=== PATIENT | male | born 1950 | race Caucasian/White ===

== ENCOUNTER 2016-08-25 21:24 | Inpatient (IN) | payer MEDICARE ==
[~2016-08-25] VITALS: Ht 182.9 cm; Wt 77.0 kg
[~2016-08-25 21:24] MED LIST: ALL220TA PO; AMAN100T PO; CARB25TA PO; ENAL10TA7 PO; ESCI10TA PO; FURO1TAB93 PO; OCUVTAB4 PO; OMEP20TA PO; [UNRECOGNIZED DRUG - CODE] PO
[2016-08-25 21:28] VITALS: BP 144/87; PULSE 67; RESP 16; TEMP 97.7; O2SAT 100
[2016-08-26 00:42] LABS: AUTOMATED NEUTROPHIL # 5.7 TH/MM3 (1.8-7.7); BASOPHIL % 0.5 % (0.0-2.0); EOSINOPHIL % 0.3 % (0.0-4.0); HEMATOCRIT 44.6 % (39.0-51.0); HEMO FLAGS DIFF FINAL; LYMPH % 6.8 % (9.0-44.0); LYMPHOCYTE # 0.4 TH/MM3 (1.0-4.8); MEAN CELL VOLUME 92.4 FL (80.0-100.0); MEAN CORPUSCULAR HEMOGLOBIN 31.2 PG (27.0-34.0); MEAN CORPUSCULAR HGB CONC 33.7 % (32.0-36.0); MONO % 4.9 % (0.0-8.0); NEUT % 87.5 % (16.0-70.0); PLATELET COUNT 235 TH/MM3 (150-450); RED BLOOD COUNT 4.82 MIL/MM3 (4.50-5.90); RED CELL DISTRIBUTION WIDTH 13.6 % (11.6-17.2); WHITE BLOOD COUNT 6.5 TH/MM3 (4.0-11.0)
[2016-08-26 00:52] LABS: ALT (GPT) 10 U/L (12-78); ANION GAP 8 MEQ/L (5-15); AST (GOT) 18 U/L (15-37); BICARBONATE 32.4 MEQ/L (21.0-32.0); BLOOD UREA NITROGEN 24 MG/DL (7-18); CHLORIDE 98 MEQ/L (98-107); GLOMERULAR FILTRATION RATE 73 ML/MIN (>89); POTASSIUM 3.4 MEQ/L (3.5-5.1); SODIUM (NA) 138 MEQ/L (136-145)
[2016-08-26 00:54] LABS: ALKALINE PHOSPHATASE 98 U/L (45-117); TOTAL BILIRUBIN ADULT 0.7 MG/DL (0.2-1.0)
[2016-08-26 01:11] LABS: BLOOD, URINE NEG (NEG); COMMENT (UR) CULT NOT INDICATED; CULTURE IF INDICATED CULT NOT INDICATED; GLUCOSE,URINE NEG (NEG); HYALINE CAST, URINE 1 /lpf (RARE); KETONE, URINE 80 mg/dL (NEG); MUCUS URINE FEW /lpf (OCC); NITRITE,URINE NEG (NEG); PH, URINE 5.5 (5.0-8.5); URINE COLOR YELLOW (YELLW/STRAW)
[2016-08-26 01:50] VITALS: BP 139/66; PULSE 79; RESP 18; O2SAT 94
[2016-08-26] MEDS ORDERED: ENAL10TA PO (02:09)
[2016-08-26] MEDS ORDERED: NAPR220T95 PO (02:09)
[2016-08-26] MEDS ORDERED: OMEP20TA PO (02:09)
[2016-08-26] MEDS ORDERED: AMAN100C18 PO (02:09)
[2016-08-26] MEDS ORDERED: ESCI10TA PO (02:09)
[2016-08-26] MEDS ORDERED: FURO40TA PO (02:09)
[2016-08-26] MEDS ORDERED: [UNRECOGNIZED DRUG - CODE] PO (02:09)
[2016-08-26] MEDS ORDERED: SINE10100 PO (02:09)
--- NOTE | 2016-08-26 02:25 | PD ---
HPI . Abdominal pain Chief Complaint: Abdominal Pain Time Seen by Provider: 01:43 Travel History International Travel<30 days: No Contact w/Intl Traveler<30days: No Traveled to known affect area: No History of Present Illness HPI Patient presents with abdominal pain. He states that it started this morning but then got better. It recurred at about 4 PM and has continued. He decided to come to the emergency department about 7 PM. Unfortunately, he had to sit out in triage for a while before he got room. His pain has now resolved. He and his both state that he will periodically get a knot in his belly button which is hard and tender. He had this earlier today. The knot has resolved as has the pain. He did not have any associated nausea or vomiting. The patient and both state that he can usually lay down flat on his back and massage the knot in his umbilicus and the pain and the knot will resolve. PFSH Past Medical History Cancer: No Cardiovascular Problems: Yes (HTN) Diabetes: No Patient Takes Glucophage: No Endocrine: No Gastrointestinal Disorders: Yes (GERD, (CURRENT GB PROB), CONSTIPATION) GERD: Yes Genitourinary: No Hepatitis: No Hiatal Hernia: No Hypertension: Yes Immune Disorder: Yes (PARKINSON'S DIS.) Inguinal Hernia: Yes Musculoskeletal: Yes (ARTHRITIS) Neurologic: Yes (PARKINSON'S/ DYSPHASIA) Parkinson's Disease: Yes Psychiatric: No Reproductive: No Respiratory: No Thyroid Disease: No Tetanus Vaccination: < 5 Years Past Surgical History Abdominal Surgery: No AICD: No Cardiac Surgery: No Cholecystectomy: Yes (06/2015) Ear Surgery: No Endocrine Surgery: No Eye Surgery: No Genitourinary Surgery: Yes (TURP) Joint Replacement: Yes (CHASITY.KNEES) Neurologic Surgery: No Oral Surgery: No Pacemaker: No Thoracic Surgery: No Other Surgery: Yes (HERNIA REPAIR) Social History Alcohol Use: Yes (RARELY) Tobacco Use: No Substance Use: No Allergies-Medications (Allergen,Severity, Reaction): Coded Allergies: Phenergan (Unverified Adverse Reaction, Unknown, avoid r/t parkinson's, ) IINSTRUCTED BY PCP TO AVOID DUE TO PARKINSON'S DIS. Reported Meds & Prescriptions Reported Meds & Active Scripts Active Reported Furosemide 40 Mg Tab 40 Mg PO DAILY Escitalopram (Escitalopram Oxalate) 10 Mg Tab 10 Mg PO DAILY Sinemet (Carbidopa/Levodopa) 10-100 Mg Tab 1 Tab PO Q8HR Mirapex ER 24 HR (Pramipexole Dihydrochloride) 4.5 Mg Tab 4.5 Mg PO DAILY Amantadine (Amantadine HCl) 100 Mg Cap 100 Mg PO TID Aleve (Naproxen Sodium) 220 Mg Tab 100 Mg PO BID PRN Omeprazole 20 Mg Tab 20 Mg PO DAILY Enalapril (Enalapril Maleate) 10 Mg Tab 10 Mg PO DAILY Review of Systems Except as stated in HPI: all other systems reviewed are Neg General / Constitutional: No: Fever, Chills Gastrointestinal: Positive: Abdominal Pain, No: Nausea, Vomiting, Changes in Bowel Habits Genitourinary: No: Urgency, Frequency, Dysuria Physical Exam Narrative GENERAL: He is awake and alert and does not appear to be in any acute distress. SKIN: Warm and dry. HEAD: Atraumatic. Normocephalic. EYES: Pupils equal and round. ENT: No nasal bleeding or discharge. Mucous membranes pink and moist. NECK: Trachea midline. CARDIOVASCULAR: Regular rate and rhythm. RESPIRATORY: No accessory muscle use. GASTROINTESTINAL: Abdomen soft, non-tender, nondistended. No palpable umbilical hernia at this time. MUSCULOSKELETAL: No obvious deformities. No edema. NEUROLOGICAL: Awake and alert. No obvious cranial nerve deficits. Motor grossly within normal limits. Normal speech. PSYCHIATRIC: Appropriate mood and affect; insight and judgment normal. Data Data Last Documented VS Vital Signs Date Time Temp Pulse Resp B/P Pulse Ox O2 Delivery O2 Flow Rate FiO2 08/26/16 01:50 79 18 139/66 94 Room Air 08/25/16 21:28 97.7 Orders Complete Blood Count With Diff (08/26/16 00:14) Comprehensive Metabolic Panel (08/26/16 00:14) Urinalysis - C+S If Indicated (08/26/16 00:14) Iv Access Insert/Monitor (08/26/16 00:14) Lipase (08/26/16 00:14) Ct Abd/Pel W/O Iv Contrast (08/26/16 02:21) Sodium Chlor 0.9% 1000 Ml Inj (Ns 1000 M (08/26/16 02:30) Admit Order (Ed Use Only) (08/26/16 03:49) Labs Laboratory Tests Test 08/26/16 08/26/16 00:22 00:32 White Blood Count 6.5 TH/MM3 Red Blood Count 4.82 MIL/MM3 Hemoglobin 15.0 GM/DL Hematocrit 44.6 % Mean Corpuscular Volume 92.4 FL Mean Corpuscular Hemoglobin 31.2 PG Mean Corpuscular Hemoglobin 33.7 % Concent Red Cell Distribution Width 13.6 % Platelet Count 235 TH/MM3 Mean Platelet Volume 8.0 FL Neutrophils (%) (Auto) 87.5 % Lymphocytes (%) (Auto) 6.8 % Monocytes (%) (Auto) 4.9 % Eosinophils (%) (Auto) 0.3 % Basophils (%) (Auto) 0.5 % Neutrophils # (Auto) 5.7 TH/MM3 Lymphocytes # (Auto) 0.4 TH/MM3 Monocytes # (Auto) 0.3 TH/MM3 Eosinophils # (Auto) 0.0 TH/MM3 Basophils # (Auto) 0.0 TH/MM3 CBC Comment DIFF FINAL Differential Comment Sodium Level 138 MEQ/L Potassium Level 3.4 MEQ/L Chloride Level 98 MEQ/L Carbon Dioxide Level 32.4 MEQ/L Anion Gap 8 MEQ/L Blood Urea Nitrogen 24 MG/DL Creatinine 1.02 MG/DL Estimat Glomerular Filtration 73 ML/MIN Rate Random Glucose 135 MG/DL Calcium Level 10.0 MG/DL Total Bilirubin 0.7 MG/DL Aspartate Amino Transf 18 U/L (AST/SGOT) Alanine Aminotransferase 10 U/L (ALT/SGPT) Alkaline Phosphatase 98 U/L Total Protein 7.6 GM/DL Albumin 4.7 GM/DL Lipase 88 U/L Urine Color YELLOW Urine Turbidity CLEAR Urine pH 5.5 Urine Specific [place] 1.027 Urine Protein 30 mg/dL Urine Glucose (UA) NEG mg/dL Urine Ketones 80 mg/dL Urine Occult Blood NEG Urine Nitrite NEG Urine Bilirubin NEG Urine Urobilinogen 2.0 MG/DL Urine Leukocyte Esterase NEG Urine RBC 1 /hpf Urine WBC 1 /hpf Urine Hyaline Casts 1 /lpf Urine Mucus FEW /lpf Microscopic Urinalysis Comment CULT NOT INDICATED MDM Medical Decision Making Medical Screen Exam Complete: Yes Emergency Medical Condition: Yes Medical Record Reviewed: Yes (patient had a volvulus about a year ago which had a similar presentation.) Differential Diagnosis Differential diagnosis of abdominal pain includes but is not limited to gastritis, pancreatitis, hepatitis, gastroenteritis, gallbladder disease, constipation, urinary retention, UTI, peptic ulcer disease, diverticulitis or appendicitis Narrative Course Patient presents for the evaluation of abdominal pain and a swelling in his umbilicus. Both have resolved. CBC & BMP Diagram 08/26/16 00:22 UA is negative. Last Impressions Abdomen/Pelvis CT 08/26/16 022 Signed Impressions: Service Date/Time: Friday, August 26, 2016 02:41 - CONCLUSION: 1. Dilated loop of small bowel with associated mesenteric whorling reflect a partial closed-loop obstruction. Followup examination is recommended if clinically indicated. Porter Burt MD Diagnosis Primary Impression: Partial small bowel obstruction Admitting Information Admitting Physician Requests: Admit Condition: Stable Diana Angulo MD Aug 26, 2016 02:25
[2016-08-26] MEDS ORDERED: SODIUM CHLOR 0.9% 1000 ML INJ 1,000 ML IV ONE (02:30)
--- NOTE | 2016-08-26 03:27 | RADRPT ---
EXAM DATE/TIME: 08/26/2016 02:41 [facility] COMPARISON: CT ABDOMEN & PELVIS W/O CONTRAST, November 27, 2015, 14:27. INDICATIONS : Umbilical pain ORAL CONTRAST: No oral contrast ingested. RADIATION DOSE: 8.9 CTDIvol (mGy) MEDICAL HISTORY : Hypertension. Parkinsons. Gastroesophageal reflux disease. SURGICAL HISTORY : Cholecystectomy. Inguinal hernia repair.TURP. ENCOUNTER: Initial ACUITY: 1 day PAIN SCALE: 8/10 LOCATION: Umbilical TECHNIQUE: Volumetric scanning of the abdomen and pelvis was performed. Using automated exposure control and ad justment of the mA and/or kV according to patient size, radiation dose was kept as low as reasonably achievable to obtain optimal diagnostic quality images. FINDINGS: Calcified granuloma is present in the left lung. The liver and spleen are normal in size and no focal defects are identified. The gallbladder is absent. The pancreas demonstrates normal contour without evidence of mass or ductal dilatation. The adrenal glands and kidneys appear normal bilaterally. No h ydronephrosis or mass lesions are identified. There is a single simple cyst in the right kidney measu ring 10 mm in the upper pole. The mesentery the right lower quadrant is whorled with adjacent dilated loop of small bowel which may reflect a partial obstruction. This is confined to a short segment of small bowel. Examination of the pelvis demonstrates no evidence of free fluid or pelvic mass. No abnormally enlarg ed inguinal or retroperitoneal lymph nodes are present. The bladder is unremarkable. There is diverti culosis without evidence of diverticulitis. CONCLUSION: 1. Dilated loop of small bowel with associated mesenteric whorling reflect a partial closed-loop obst ruction. Followup examination is recommended if clinically indicated. Porter Burt MD on August 26, 2016 at 3:15 Board Certified Radiologist. This report was verified electronically.
[2016-08-26] MEDS ORDERED: BISACODYL 10 MG SUPP PR PRN (04:00)
[2016-08-26] MEDS ORDERED: ONDANSETRON HCL 4 MG/2 ML VIAL IVP PRN (04:00)
[2016-08-26] MEDS ORDERED: ACETAMINOPHEN 1000 MG/100 ML VIAL IV PRN (04:00)
[2016-08-26] MEDS ORDERED: MORPHINE SULFATE 4 MG/ML INJ IV PRN ×2 (04:00)
[2016-08-26] MEDS ORDERED: SODIUM CHLORIDE 0.9% FLUSH 5 ML FLUSH FLUSH PRN (04:00)
[2016-08-26 04:05] VITALS: BP 146/67; PULSE 72; RESP 18; O2SAT 98
[2016-08-26] MEDS: POTASSIUM CHLOR 20 MEQ PREMIX 100 ML IV SCH ×2 (04:24→06:56)
[2016-08-26] MEDS: SODIUM CHLOR 0.9% 1000 ML INJ 1,000 ML IV SCH ×3 (04:26→17:33)
[2016-08-26] MEDS: PANTOPRAZOLE SODIUM 40 MG VIAL IV PUSH SCH ×2 (04:36→16:15)
--- NOTE | 2016-08-26 04:47 | HHI.HP ---
[facility] Yancy Han MD Admission Diagnosis PARTIAL SBO Diagnoses: (1) SBO (small bowel obstruction) (2) Hypokalemia Diagnosis: Principal (3) Parkinson disease Diagnosis: Principal (4) HTN (hypertension) Diagnosis: Principal Travel History International Travel<30 Days: No Contact w/Intl Traveler <30 Da: No Traveled to Known Affected Are: No History of Present Illness This is a 66-year-old male with a PMH of HTN, Parkinson's Disease, GERD and Arthritis who presented to the ER with complaints of abdominal pain starting yesterday afternoon. Denies nausea or vomiting. Pain w/ no radiation, not associated w/ food. Denies fever, chills or diarrhea. On arrival, BP 144/87, HR 67, O2 sat 100% on RA, Afebrile. CBC essentially unremarkable. K+ 3.4. UA negative. CT Abd/Pelvis w/ dilated loops of small bowel with associated mesenteric whorling reflecting partial closed-loop obstruction. Pt currently asymptomatic, no ongoing abdominal pain, no nausea/vomiting. Review of Systems Except as stated in HPI: all other systems reviewed are Neg ROS: 14 point review of systems otherwise negative. Past Family Social History Past Medical History PMH: HTN, Parkinson's Disease, GERD and Arthritis Past Surgical History PAST SURGICAL HISTORY: Cholecystectomy, TURP, Bilateral Knee Replacement, Hernia Repair Allergies: Coded Allergies: Phenergan (Unverified Adverse Reaction, Unknown, avoid r/t parkinson's, ) IINSTRUCTED BY PCP TO AVOID DUE TO PARKINSON'S DIS. Family History PAST FAMILY HISTORY: Reviewed. No h/o DM or CAD Social History PAST SOCIAL HISTORY: Occasional alcohol. Negative for tobacco or drugs. Physical Exam Vital Signs Vital Signs Date Time Temp Pulse Resp B/P Pulse Ox O2 Delivery O2 Flow Rate FiO2 08/26/16 04:05 72 18 146/67 98 Room Air 08/26/16 01:50 79 18 139/66 94 Room Air 08/25/16 21:28 97.7 67 16 144/87 100 Room Air Physical Exam PE: GENERAL: Pleasant middle-aged male in no acute distress. HEENT: PERRLA, EOMI. No scleral icterus or conjunctival pallor. No lid lag or facial droop. CARDIOVASCULAR: Regular rate and rhythm. No obvious murmurs to auscultation. No chest tenderness to palpation. RESPIRATORY: No obvious rhonchi or wheezing. Clear to auscultation. Breath sounds equal bilaterally. GASTROINTESTINAL: Abdomen soft, non-tender, nondistended. BS normal. MUSCULOSKELETAL: Extremities without clubbing, cyanosis, or edema. No obvious deformities. NEUROLOGICAL: Awake, alert and oriented x4. No focal neurologic deficits. Moving both upper and lower extremities spontaneously. Laboratory Laboratory Tests Test 08/26/16 08/26/16 00:22 00:32 White Blood Count 6.5 Red Blood Count 4.82 Hemoglobin 15.0 Hematocrit 44.6 Mean Corpuscular Volume 92.4 Mean Corpuscular Hemoglobin 31.2 Mean Corpuscular Hemoglobin 33.7 Concent Red Cell Distribution Width 13.6 Platelet Count 235 Mean Platelet Volume 8.0 Neutrophils (%) (Auto) 87.5 Lymphocytes (%) (Auto) 6.8 Monocytes (%) (Auto) 4.9 Eosinophils (%) (Auto) 0.3 Basophils (%) (Auto) 0.5 Neutrophils # (Auto) 5.7 Lymphocytes # (Auto) 0.4 Monocytes # (Auto) 0.3 Eosinophils # (Auto) 0.0 Basophils # (Auto) 0.0 CBC Comment DIFF FINAL Differential Comment Sodium Level 138 Potassium Level 3.4 Chloride Level 98 Carbon Dioxide Level 32.4 Anion Gap 8 Blood Urea Nitrogen 24 Creatinine 1.02 Estimat Glomerular Filtration 73 Rate Random Glucose 135 Calcium Level 10.0 Total Bilirubin 0.7 Aspartate Amino Transf 18 (AST/SGOT) Alanine Aminotransferase 10 (ALT/SGPT) Alkaline Phosphatase 98 Total Protein 7.6 Albumin 4.7 Lipase 88 Urine Color YELLOW Urine Turbidity CLEAR Urine pH 5.5 Urine Specific [place] 1.027 Urine Protein 30 Urine Glucose (UA) NEG Urine Ketones 80 Urine Occult Blood NEG Urine Nitrite NEG Urine Bilirubin NEG Urine Urobilinogen 2.0 Urine Leukocyte Esterase NEG Urine RBC 1 Urine WBC 1 Urine Hyaline Casts 1 Urine Mucus FEW Microscopic Urinalysis Comment CULT NOT INDICATED Result Diagram: 08/26/162 08/26/162 Assessment and Plan Problem List: (1) SBO (small bowel obstruction) ICD Code: K56.69 Status: Acute (2) Hypokalemia ICD Code: E87.6 Status: Acute (3) HTN (hypertension) ICD Code: I10 Status: Acute (4) Parkinson disease ICD Code: G20 Status: Acute Assessment and Plan A/P: 1. SBO: acute onset of abdominal pain x1 day, no associated nausea/vomiting. CT Abd/Pelvis w/ dilated loop of small bowel with associated mesenteric whorling reflecting partial closed-loop obstruction, images reviewed by me. Currently asymptomatic w/ no ongoing pain, no nausea/vomiting. NGT if symptoms recur. Consult Gen Sx for eval however no emergent surgical indication at this time. IVF, NPO, Analgesics/antiemetics as needed. Replace K+. 2. Hypokalemia: K+ 3.2, replace and recheck in am. 3. HTN: BP 140's systolic, controlled. Hold PO antihypertensive meds at this time for SBO. 4. Parkinson's Disease: Hold PO medications at this time for SBO. 5. DVT Prophylaxis: SCD/Teds. 6. Social work for d/c planning as needed. 7. Case discussed w/ ER physician at length. Physician Certification 2 Midnight Certification Type: Admission for Inpatient Services Order for Inpatient Services The services are ordered in accordance with Medicare regulations or non- Medicare payer requirements, as applicable. In the case of services not specified as inpatient-only, they are appropriately provided as inpatient services in accordance with the 2-midnight benchmark. Estimated LOS (days): 2 days is the estimated time the patient will need to remain in the hospital, assuming treatment plan goals are met and no additional complications. Post-Hospital Plan: Not yet determined Gita Mcgovern MD Aug 26, 2016 04:47
[2016-08-26 06:28] VITALS: BP 130/72; PULSE 70; RESP 18; O2SAT 96
--- NOTE | 2016-08-26 07:16 | PD.PN.STU ---
Subjective Remarks 66 year old male presenting to the ED last night for umbilical abdominal pain that started yesterday afternoon. The pain was 7/10 on the pain scale last night and does not radiate. Nothing has made this pain better or worse.He had difficulty finding a comfortable position to subside the pain. However, the patient reports that the pain is not apparent now this morning in the ED. The patient reports no nausea, vomiting, diarrhea, fever or chills. The patient has had similar episodes in the past year where he came to the ED and the episodes spontaneously resolved. The of the patient reports that she sometimes sees a bulging mass coming from the umbilical area but it will eventually subside. The patient reports no particular changes in diet or lifestyle that possibly could have contributed to this abdominal pain. The patient reports no changes in bowel movements and no hematochezia. PMH for GERD, HTN, arthritis, and parkinsons. Past surgeries include laparoscopic cholecystectomy and inguinal hernia repair. Objective Vitals PE: GENERAL: Pleasant middle-aged male in no acute distress. HEENT: No scleral icterus or conjunctival pallor. CARDIOVASCULAR: Regular rate and rhythm. No obvious murmurs to auscultation. No chest tenderness to palpation. RESPIRATORY: No obvious rhonchi or wheezing. Clear to auscultation. Breath sounds equal bilaterally. GASTROINTESTINAL: Abdomen soft, non-tender, nondistended. BS normal. No ventral abdominal or umbilical hernia present. MUSCULOSKELETAL: Extremities without clubbing, cyanosis, or edema. No obvious deformities. NEUROLOGICAL: Awake, alert and oriented x4. No focal neurologic deficits. Moving both upper and lower extremities spontaneously. Imaging: SBO with dilated loops of bowel. Laboratory Vital Signs Date Time Temp Pulse Resp B/P Pulse Ox O2 Delivery O2 Flow Rate FiO2 08/26/16 06:28 70 18 130/72 96 Room Air 08/26/16 04:05 72 18 146/67 98 Room Air 08/26/16 01:50 79 18 139/66 94 Room Air 08/25/16 21:28 97.7 67 16 144/87 100 Room Air Result Diagram: 08/26/16 0022 08/26/16 0022 A/P Assessment and Plan Bowel obstruction with dilated bowel loops on imaging. No vomiting or leukocytosis. Keep NPO, bowel rest, NG tube if needed. Reassess patient and imaging. Benjamin Hardy M3 Aug 26, 2016 07:16
[2016-08-26] MEDS: SODIUM CHLORIDE 0.9% FLUSH 5 ML FLUSH FLUSH SCH ×2 (09:30→20:08)
[2016-08-26 11:03] VITALS: BP 135/65; PULSE 79; RESP 20; O2SAT 99
[2016-08-26 16:00] VITALS: BP 121/74; PULSE 74; RESP 18; TEMP 97; O2SAT 99
--- NOTE | 2016-08-26 17:57 | HHI.PR ---
Addendum to Inpatient Note Addendum Reason: Additional Documentation Additional Information Patient seen and examined. The patient denies any abdominal pain, nausea or vomiting. On exam the abdomen is soft, nontender nondistended. Patient is awake alert oriented 3. Surgery consultation still pending. Seems that small bowel obstruction has resolved. Could likely be discharged after cleared by surgery. Potassium slightly low at 3.4 for, I will replace orally and continue to monitor potassium. I will resume home meds for Parkinson. Chris Covarrubias MD Aug 26, 2016 17:57
[2016-08-26] MEDS ORDERED: PRAMIPEXOLE PO SCH (18:00)
[2016-08-26] MEDS: CARBIDOPA/LEVODOPA 10 MG/100 MG TAB PO SCH ×2 (18:00→22:38)
[2016-08-26] MEDS: AMANTADINE HCL 100 MG CAP PO SCH (18:00)
[2016-08-26 20:00] VITALS: BP 127/77; PULSE 63; RESP 19; TEMP 97.6; O2SAT 94
--- NOTE | 2016-08-26 22:37 | MB ---
cc: SUSAN JIN M.D. DATE OF CONSULTATION 08/26/2016 REASON FOR CONSULTATION Partial small-bowel obstruction. HISTORY OF PRESENT ILLNESS The patient is a 66-year-old male with a history of previous abdominal pain in November of last year who was found to have a partial bowel obstruction that resolved spontaneously. The patient had similar episode yesterday prior to admission that lasted about six hours. This was associated with abdominal pain that was constant and severe but no nausea or vomiting. There is no fever, chills or diarrhea. Bowel habits were not changed. CT the abdomen and pelvis demonstrated dilated loops of small bowel with an associated mesenteric whirling reflecting a partial closed loop obstruction. The patient is asymptomatic at the time of my exam and wants something to eat. PAST MEDICAL HISTORY 1. Hypertension, 2. Parkinson's disease 3. GE reflux disease 4. Arthritis. PAST SURGERIES 1. Cholecystectomy, 2. TURP 3. Bilateral total knee replacement 4. Right inguinal hernia repair. THE PATIENT HAS A PROBLEM WITH PHENERGAN TO HIS PARKINSON'S PHYSICAL EXAMINATION GENERAL: A male who is lying quietly in bed. VITAL SIGNS: BP 121/74, pulse 74, respirations 18, temp 97.0, 99% saturation on room air. HEENT: Sclerae anicteric. Pupils reactive. CHEST: Clear to auscultation. CARDIAC: Regular rate and rhythm. ABDOMEN: Soft and nontender. There are no hernias noted. EXTREMITIES: Pulses are intact. NEUROLOGIC: The patient has a flat affect and minimal tremor. LABORATORY DATA WBCs of 6.5, platelets are 235,000, hemoglobin is 15. Chemistries demonstrate potassium of 3.4, BUN and creatinine of [address] findings are as indicated above with the whirling on the right side. ASSESSMENT Intermittent small-bowel obstruction, currently resolved. PLAN Would start on clear liquids and advance diet tomorrow. We will discuss with the patient his surgical intervention if this happens again. Thank you for allowing me the opportunity to care for this patient with you. MD MARTHA Vergara/ /10:03 PM /10:25 PM
[2016-08-27] VITALS: BP 119/56; PULSE 86; RESP 21; TEMP 96; O2SAT 96
[2016-08-27 04:00] VITALS: BP 109/56; PULSE 63; RESP 20; TEMP 97.8; O2SAT 96
[2016-08-27 05:07] LABS: AUTOMATED NEUTROPHIL # 2.5 TH/MM3 (1.8-7.7); BASOPHIL % 0.7 % (0.0-2.0); EOSINOPHIL # 0.2 TH/MM3 (0-0.4); EOSINOPHIL % 4.4 % (0.0-4.0); HEMATOCRIT 37.4 % (39.0-51.0); HEMO FLAGS DIFF FINAL; LYMPH % 21.2 % (9.0-44.0); LYMPHOCYTE # 0.8 TH/MM3 (1.0-4.8); MEAN CORPUSCULAR HEMOGLOBIN 31.8 PG (27.0-34.0); MEAN CORPUSCULAR HGB CONC 34.2 % (32.0-36.0); MONO % 11.6 % (0.0-8.0); NEUT % 62.1 % (16.0-70.0); PLATELET COUNT 192 TH/MM3 (150-450); RED BLOOD COUNT 4.03 MIL/MM3 (4.50-5.90); RED CELL DISTRIBUTION WIDTH 13.7 % (11.6-17.2)
[2016-08-27 05:35] LABS: ALKALINE PHOSPHATASE 79 U/L (45-117); ALT (GPT) 9 U/L (12-78); ANION GAP 8 MEQ/L (5-15); AST (GOT) 16 U/L (15-37); BICARBONATE 30.2 MEQ/L (21.0-32.0); BLOOD UREA NITROGEN 19 MG/DL (7-18); CHLORIDE 103 MEQ/L (98-107); GLOMERULAR FILTRATION RATE 86 ML/MIN (>89); POTASSIUM 3.4 MEQ/L (3.5-5.1); SODIUM (NA) 141 MEQ/L (136-145); TOTAL BILIRUBIN ADULT 0.6 MG/DL (0.2-1.0)
[2016-08-27] MEDS: CARBIDOPA/LEVODOPA 10 MG/100 MG TAB PO SCH ×2 (06:13→13:18)
[2016-08-27] MEDS ORDERED: POTASSIUM CHLORIDE 20 MEQ CONTROLLED RELEASE TAB PO ONE (06:45)
[2016-08-27 08:00] VITALS: BP 126/64; PULSE 84; RESP 18; TEMP 95.7; O2SAT 97
[2016-08-27] MEDS: PANTOPRAZOLE SOD 20 MG DELAYED RELEASE TAB PO SCH ×2 (08:29→08:32)
[2016-08-27] MEDS: AMANTADINE HCL 100 MG CAP PO SCH ×2 (08:30→13:18)
[2016-08-27] MEDS: SODIUM CHLORIDE 0.9% FLUSH 5 ML FLUSH FLUSH SCH (08:33)
[2016-08-27] MEDS ORDERED: ENALAPRIL MALEATE 10 MG TAB PO SCH (09:00)
[2016-08-27] MEDS ORDERED: ESCITALOPRAM OXALATE 10 MG TAB PO SCH (09:00)
[2016-08-27] MEDS: SODIUM CHLOR 0.9% 1000 ML INJ 1,000 ML IV SCH (10:00)
--- NOTE | 2016-08-27 11:49 | HHI.DCPOC ---
Discharge Care Plan Goals to Promote Your Health * To prevent worsening of your condition and complications * To maintain your health at the optimal level Directions to Meet Your Goals Take your medications as prescribed Follow your dietary instruction Follow activity as directed Keep your appointments as scheduled Take your immunizations and boosters as scheduled If your symptoms worsen call your PCP, if no PCP go to Urgent Care Center or Emergency Room Smoking is Dangerous to Your Health. Avoid second hand smoke Call the 24-hour hour crisis hotline for domestic abuse at Kerry oYung MD Aug 27, 2016 11:49
--- NOTE | 2016-08-27 11:50 | HHI.PR ---
Subjective Remarks Feels much better. Says she has 3 BM today. No fever or chills. No abdominal pain. No n/v/d/c. Patient in nad, wants to go home. Cleared for DC if tolerates reg diet per Dr Shen. Objective Vitals Vital Signs Date Time Temp Pulse Resp B/P Pulse Ox O2 Delivery O2 Flow Rate FiO2 08/27/16 08:00 95.7 84 18 126/64 97 08/27/16 04:00 97.8 63 20 109/56 96 08/27/16 00:00 96.0 86 21 119/56 96 08/26/16 20:00 97.6 63 19 127/77 94 08/26/16 16:00 97.0 74 18 121/74 99 I/O 08/26/16 08/26/16 08/26/16 08/27/16 08/27/16 08/27/16 07:00 15:00 23:00 07:00 15:00 23:00 Intake Total 626 ml 240 ml Balance 626 ml 240 ml Intake Oral 240 ml 240 ml IV Total 386 ml # Voids 2 2 # Bowel Movements 1 1 0 Result Diagram: 08/27/16 0425 08/27/16 0425 Imaging Last Impressions Abdomen/Pelvis CT 08/26/16 0221 Signed Impressions: Service Date/Time: Friday, August 26, 2016 02:41 - CONCLUSION: 1. Dilated loop of small bowel with associated mesenteric whorling reflect a partial closed-loop obstruction. Followup examination is recommended if clinically indicated. Porter Burt MD Objective Remarks GENERAL: Very pleasant 66 yo male appears in [facility]. SKIN: Warm and dry. HEAD: Atraumatic. Normocephalic. EYES: Pupils equal and round. No scleral icterus. No injection or drainage. ENT: No nasal bleeding or discharge. Mucous membranes pink and moist. NECK: Trachea midline. No JVD. CARDIOVASCULAR: Regular rate and rhythm. RESPIRATORY: No accessory muscle use. Clear to auscultation. Breath sounds equal bilaterally. GASTROINTESTINAL: Abdomen soft, non-tender, nondistended. Hepatic and splenic margins not palpable. MUSCULOSKELETAL: Extremities without clubbing, cyanosis, or edema. No obvious deformities. NEUROLOGICAL: Awake and alert. No obvious cranial nerve deficits. Motor grossly within normal limits. Five out of 5 muscle strength in the arms and legs. Normal speech. PSYCHIATRIC: Appropriate mood and affect; insight and judgment normal. A/P Problem List: (1) SBO (small bowel obstruction) ICD Code: K56.69 Status: Acute (2) Hypokalemia ICD Code: E87.6 Status: Acute (3) HTN (hypertension) ICD Code: I10 Status: Acute (4) Parkinson disease ICD Code: G20 Status: Acute Assessment and Plan 1. SBO: acute onset of abdominal pain x1 day, no associated nausea/vomiting. CT Abd/Pelvis w/ dilated loop of small bowel with associated mesenteric whorling reflecting partial closed-loop obstruction, images reviewed by me. Currently asymptomatic w/ no ongoing pain, no nausea/vomiting. NGT if symptoms recur. Consult Gen Sx for eval however no emergent surgical indication at this time. IVF, NPO, Analgesics/antiemetics as needed. Replace K+. Patient improved, no pain. Had 3 BM. Tolerates food. Cleared by Dr Ac mckeon surgery for DC. 2. Hypokalemia: K+ 3.2, replaced Monitor and replace as need. Advance diet 3. HTN: BP 140's systolic, controlled. Resume meds 4. Parkinson's Disease. Resume PO medications at home. DVT Prophylaxis: SCD/Teds. Social work for d/c planning as needed. Discussed with the patient, nurse, family at bedside. Dr Ac mckeon surgery. Discharge Planning DC home in fairly well condition Follow up with PcP and consultants as OP. Diet healthy heart diet as tolerated Activity as tolerated Kerry Young MD Aug 27, 2016 11:50
[2016-08-27 12:00] VITALS: BP 121/66; PULSE 78; RESP 18; TEMP 98.1; O2SAT 98
--- NOTE | 2016-08-27 15:30 | HHI.PR ---
Subjective Subjective Notes Feels well; tolerated clears for breakfast. No pain Objective Vitals/I&O Vital Signs Date Time Temp Pulse Resp B/P Pulse Ox O2 Delivery O2 Flow Rate FiO2 08/27/16 12:00 98.1 78 18 121/66 98 08/26/16 11:03 Room Air Labs Laboratory Tests Test 08/27/16 04:25 White Blood Count 4.0 Red Blood Count 4.03 Hemoglobin 12.8 Hematocrit 37.4 Mean Corpuscular Volume 93.0 Mean Corpuscular Hemoglobin 31.8 Mean Corpuscular Hemoglobin 34.2 Concent Red Cell Distribution Width 13.7 Platelet Count 192 Mean Platelet Volume 7.9 Neutrophils (%) (Auto) 62.1 Lymphocytes (%) (Auto) 21.2 Monocytes (%) (Auto) 11.6 Eosinophils (%) (Auto) 4.4 Basophils (%) (Auto) 0.7 Neutrophils # (Auto) 2.5 Lymphocytes # (Auto) 0.8 Monocytes # (Auto) 0.5 Eosinophils # (Auto) 0.2 Basophils # (Auto) 0.0 CBC Comment DIFF FINAL Differential Comment Sodium Level 141 Potassium Level 3.4 Chloride Level 103 Carbon Dioxide Level 30.2 Anion Gap 8 Blood Urea Nitrogen 19 Creatinine 0.88 Estimat Glomerular Filtration 86 Rate Random Glucose 81 Calcium Level 8.6 Total Bilirubin 0.6 Aspartate Amino Transf 16 (AST/SGOT) Alanine Aminotransferase 9 (ALT/SGPT) Alkaline Phosphatase 79 Total Protein 5.9 Albumin 3.4 Abdomen: Non-distended, Non-tender A/P Assessment and Plan Tolerating diet without pain Plan: Advance diet for lunch; if tolerated, discharge to home. Patient and advised to call me if he has any further episodes, as he may require laparoscopy. Bill Shen MD Aug 27, 2016 15:30
== END 2016-08-27 13:34 | disposition home or self-care (01) | DRG 390 ==
LOC: NEPE 21:24 → NEDA 08-26 03:50 → NEDH 08-26 10:29 → N07B 08-26 14:53
PROVIDERS: ADMIT Hospitalist; ATTEND Hospitalist
DX: K56.60 Unspecified intestinal obstruction (principal); G20 Parkinson's disease; I10 Essential (primary) hypertension; E87.6 Hypokalemia; K21.9 Gastro-esophageal reflux disease without esophagitis; M19.90 Unspecified osteoarthritis, unspecified site; Z96.653 Presence of artificial knee joint, bilateral
CPT/HCPCS: 74176; 80053; 81001; 83690; 85025; 96360; C9113; J3480; J7030

== ENCOUNTER 2017-05-03 15:34 | Emergency (ER) | payer MEDICARE ==
[~2017-05-03] VITALS: Ht 182.9 cm; Wt 76.0 kg
[~2017-05-03 15:34] MED LIST changes: -ALL220TA PO; +AMAN100C18 PO; -AMAN100T PO; -CARB25TA PO; +ENAL10TA PO; -ENAL10TA7 PO; -FURO1TAB93 PO; +FURO40TA PO; +NAPR220T95 PO; -OCUVTAB4 PO; +SINE10100 PO
[2017-05-03 15:48] VITALS: BP 106/61; PULSE 80; RESP 18; TEMP 98.5; O2SAT 98
[2017-05-03] MEDS ORDERED: NAPR220C22 PO (16:41)
[2017-05-03] MEDS ORDERED: AMAN100T PO (16:49)
[2017-05-03] MEDS ORDERED: PENI500T PO (16:50)
--- NOTE | 2017-05-03 17:14 | PD ---
HPI Chief Complaint: Head Injury Time Seen by Provider: 16:40 Travel History International Travel<30 days: No Contact w/Intl Traveler<30days: No Traveled to known affect area: No History of Present Illness HPI 67-year-old male was brought in by family member after a fall. Patient states that he had dizziness and fell and hit the forehead. Patient denies loss of consciousness. Patient denies any headache or neck pain. Patient denies any visual change. Patient denies any chest pain or shortness of breath. Patient denies abdominal pain. Patient denies any focal weakness or numbness of extremity. Patient states that he has abrasion to right elbow posteriorly. Patient denies any problem with movement of the right elbow. No right elbow pain. Patient's up-to-date with TD booster. Patient states that he has laceration to right forehead above the right eyebrow. Family member states the patient is taking an experimental medication and involving in a sleep study for the past 2 weeks. Family member states the patient is getting more confused for the past couple weeks. Patient has history of hypertension, diabetes, GERD , Parkinson disease. PFSH Past Medical History Arthritis: Yes (knees) Cancer: Yes (basal cell skin) Cardiovascular Problems: Yes Diabetes: No Endocrine: No Gastrointestinal Disorders: Yes (GERD, (CURRENT GB PROB), CONSTIPATION) GERD: Yes Genitourinary: No Hepatitis: No Hiatal Hernia: No Hypertension: Yes Immune Disorder: No Inguinal Hernia: Yes Musculoskeletal: Yes Neurologic: Yes (PARKINSON'S/ DYSPHASIA, recent confusion) Parkinson's Disease: Yes Psychiatric: No Reproductive: No Respiratory: No Thyroid Disease: No Tetanus Vaccination: < 5 Years Influenza Vaccination: No Past Surgical History Abdominal Surgery: No (hernia, , twisted intestines,scoped) AICD: No Cardiac Surgery: No Cholecystectomy: Yes (06/2015) Ear Surgery: No Endocrine Surgery: No Eye Surgery: No Genitourinary Surgery: Yes (TURP) Joint Replacement: Yes (CHASITY.KNEES) Neurologic Surgery: No Oral Surgery: No Pacemaker: No Thoracic Surgery: No Other Surgery: Yes (right HERNIA REPAIR) Social History Alcohol Use: Yes (RARELY-beer) Tobacco Use: No Substance Use: No Allergies-Medications (Allergen,Severity, Reaction): Coded Allergies: promethazine (Unverified Adverse Reaction, Unknown, avoid r/t parkinson's , 05/03/17) IINSTRUCTED BY PCP TO AVOID DUE TO PARKINSON'S DIS. Reported Meds & Prescriptions Reported Meds & Active Scripts Active Reported Penicillin V Potassium 500 Mg Tab 500 Mg PO TID Amantadine (Amantadine HCl) 100 Mg Tab 100 Mg PO TID Aleve (Naproxen Sodium) 220 Mg Capsule 1 Cap PO BID Furosemide 40 Mg Tab 40 Mg PO DAILY PRN Escitalopram (Escitalopram Oxalate) 10 Mg Tab 10 Mg PO DAILY Sinemet (Carbidopa/Levodopa) 10-100 Mg Tab 1 Tab PO TID Mirapex ER 24 HR (Pramipexole Dihydrochloride) 4.5 Mg Tab 4.5 Mg PO DAILY Omeprazole 20 Mg Tab 20 Mg PO DAILY Enalapril (Enalapril Maleate) 10 Mg Tab 10 Mg PO DAILY Review of Systems General / Constitutional: No: Fever Eyes: No: Visual changes HENT: No: Headaches Cardiovascular: No: Chest Pain or Discomfort Respiratory: No: Shortness of Breath Gastrointestinal: No: Abdominal Pain Genitourinary: No: Dysuria Musculoskeletal: No: Pain Skin: No Rash Neurologic: No: Weakness Psychiatric: No: Depression Endocrine: No: Polydipsia Hematologic/Lymphatic: No: Easy Bruising Physical Exam Narrative GENERAL: Well-nourished, well-developed patient. SKIN: Focused skin assessment warm/dry. HEAD: Normocephalic. Patient has a 3 cm laceration right forehead above the right eyebrow. No active bleeding. EYES: No scleral icterus. No injection or drainage. NECK: Supple, trachea midline. No JVD or lymphadenopathy. CARDIOVASCULAR: Regular rate and rhythm without murmurs, gallops, or rubs. RESPIRATORY: Breath sounds equal bilaterally. No accessory muscle use. GASTROINTESTINAL: Abdomen soft, non-tender, nondistended. MUSCULOSKELETAL: No cyanosis, or edema. BACK: Nontender without obvious deformity. No CVA tenderness. Neurologic exam: Patient's awake and alert oriented 3. Patient moves all extremity well. No obvious focal neurological deficit. Data Data Last Documented VS Vital Signs Date Time Temp Pulse Resp B/P (MAP) Pulse Ox O2 Delivery O2 Flow Rate FiO2 05/03/17 18:33 76 16 98 Room Air 05/03/17 18:00 120/66 (84) 05/03/17 15:48 98.5 Orders Orders Complete Blood Count With Diff (05/03/17 16:47) Comprehensive Metabolic Panel (05/03/17 16:47) Urinalysis - C+S If Indicated (05/03/17 16:47) Ct Brain W/O Iv Contrast(Rout) (05/03/17 16:47) Iv Access Insert/Monitor (05/03/17 16:47) Labs Laboratory Tests Test 05/03/17 17:15 05/03/17 17:40 White Blood Count 7.4 TH/MM3 Red Blood Count 3.89 MIL/MM3 Hemoglobin 12.0 GM/DL Hematocrit 35.9 % Mean Corpuscular Volume 92.5 FL Mean Corpuscular Hemoglobin 30.8 PG Mean Corpuscular Hemoglobin Concent 33.3 % Red Cell Distribution Width 12.6 % Platelet Count 280 TH/MM3 Mean Platelet Volume 6.8 FL Neutrophils (%) (Auto) 83.2 % Lymphocytes (%) (Auto) 8.2 % Monocytes (%) (Auto) 6.1 % Eosinophils (%) (Auto) 2.2 % Basophils (%) (Auto) 0.3 % Neutrophils # (Auto) 6.1 TH/MM3 Lymphocytes # (Auto) 0.6 TH/MM3 Monocytes # (Auto) 0.5 TH/MM3 Eosinophils # (Auto) 0.2 TH/MM3 Basophils # (Auto) 0.0 TH/MM3 CBC Comment AUTO DIFF Differential Comment AUTO DIFF CONFIRMED Blood Urea Nitrogen 23 MG/DL Creatinine 1.10 MG/DL Random Glucose 89 MG/DL Total Protein 7.0 GM/DL Albumin 3.7 GM/DL Calcium Level 9.1 MG/DL Alkaline Phosphatase 98 U/L Aspartate Amino Transf (AST/SGOT) 17 U/L Alanine Aminotransferase (ALT/SGPT) 25 U/L Total Bilirubin 0.5 MG/DL Sodium Level 140 MEQ/L Potassium Level 3.5 MEQ/L Chloride Level 102 MEQ/L Carbon Dioxide Level 30.2 MEQ/L Anion Gap 8 MEQ/L Estimat Glomerular Filtration Rate 66 ML/MIN Urine Color YELLOW Urine Turbidity CLEAR Urine pH 5.5 Urine Specific [place] 1.025 Urine Protein NEG mg/dL Urine Glucose (UA) NEG mg/dL Urine Ketones 15 mg/dL Urine Occult Blood NEG Urine Nitrite NEG Urine Bilirubin NEG Urine Leukocyte Esterase NEG Urine RBC 0-3 /hpf Urine WBC 0-2 /hpf Urine Squamous Epithelial Cells 0-5 /hpf Microscopic Urinalysis Comment CULT NOT INDICATED MDM Medical Decision Making Medical Screen Exam Complete: Yes Emergency Medical Condition: Yes Interpretation(s) Last Impressions Head CT 05/03/17 1647 Signed Impressions: Service Date/Time: Wednesday, May 03, 2017 18:02 - CONCLUSION: Negative noncontrast CT brain. Jagdeep Gates MD 1843 PM. CBC within normal limit. CMP within normal limit. BUN 23. UA is negative. Differential Diagnosis Differential diagnosis including laceration, skull fracture, intracranial hemorrhage, electrolyte imbalance. Narrative Course 67-year-old male complains of right forehead laceration after a fall. Procedures Procedure Narrative Dermabond applied to the laceration right forehead. Diagnosis Primary Impression: Forehead laceration Qualified Codes: S01.81XA - Laceration without foreign body of other part of head, initial encounter Additional Impression: Closed head injury Qualified Codes: S09.90XA - Unspecified injury of head, initial encounter Patient Instructions: General Instructions Additional Instructions: Keep the wound clean and dry for 7 days. Head trauma instructions given. Follow-up with personal physician. Return as needed. Med/Other Pt SpecificInfo: No Change to Jarochos Macho Guadarrama MD May 03, 2017 17:14
[2017-05-03 17:18] LABS: AUTOMATED NEUTROPHIL # 6.1 TH/MM3 (1.8-7.7); BASOPHIL % 0.3 % (0.0-2.0); EOSINOPHIL # 0.2 TH/MM3 (0-0.4); EOSINOPHIL % 2.2 % (0.0-4.0); HEMATOCRIT 35.9 % (39.0-51.0); LYMPH % 8.2 % (9.0-44.0); LYMPHOCYTE # 0.6 TH/MM3 (1.0-4.8); MEAN CELL VOLUME 92.5 FL (80.0-100.0); MEAN CORPUSCULAR HEMOGLOBIN 30.8 PG (27.0-34.0); MEAN CORPUSCULAR HGB CONC 33.3 % (32.0-36.0); MEAN PLATELET VOLUME 6.8 FL (7.0-11.0); MONO % 6.1 % (0.0-8.0); MONOCYTE # 0.5 TH/MM3 (0-0.9); NEUT % 83.2 % (16.0-70.0); PLATELET COUNT 280 TH/MM3 (150-450); RED BLOOD COUNT 3.89 MIL/MM3 (4.50-5.90); RED CELL DISTRIBUTION WIDTH 12.6 % (11.6-17.2); WHITE BLOOD COUNT 7.4 TH/MM3 (4.0-11.0)
[2017-05-03 17:24] LABS: CHLORIDE 102 MEQ/L (98-107); SODIUM (NA) 140 MEQ/L (136-145)
[2017-05-03 17:28] LABS: ALBUMIN 3.7 GM/DL (3.4-5.0); CALCIUM 9.1 MG/DL (8.5-10.1)
[2017-05-03 17:29] LABS: BICARBONATE 30.2 MEQ/L (21.0-32.0); BLOOD UREA NITROGEN 23 MG/DL (7-18); GLUCOSE,RANDOM 89 MG/DL (74-106)
[2017-05-03 17:32] LABS: ALT (GPT) 25 U/L (12-78); AST (GOT) 17 U/L (15-37); GLOMERULAR FILTRATION RATE 66 ML/MIN (>89)
[2017-05-03 17:33] LABS: TOTAL BILIRUBIN ADULT 0.5 MG/DL (0.2-1.0)
[2017-05-03 17:35] LABS: ALKALINE PHOSPHATASE 98 U/L (45-117)
[2017-05-03 17:52] LABS: BILIRUBIN, URINE NEG (NEG); BLOOD, URINE NEG (NEG); GLUCOSE,URINE NEG (NEG); KETONE, URINE 15 mg/dL (NEG); NITRITE,URINE NEG (NEG); PH, URINE 5.5 (5.0-8.5); URINE LEUKOCYTE ESTERASE NEG (NEG)
[2017-05-03 18:00] VITALS: BP 120/66; PULSE 76; RESP 16; O2SAT 98
[2017-05-03 18:08] LABS: URINE COLOR YELLOW (YELLW/STRAW)
[2017-05-03 18:11] LABS: RBC, URINE 0-3 /hpf (0-3); SQUAMOUS EPITHELIAL CELL URINE 0-5 /hpf (0-5); WBC, URINE 0-2 /hpf (0-5)
--- NOTE | 2017-05-03 18:12 | RADRPT ---
EXAM DATE/TIME: 05/03/2017 18:02 [facility] COMPARISON: No previous studies available for comparison. INDICATIONS : Fall after dizziness episode. Hit head. RADIATION DOSE: 64.62 CTDIvol (mGy) MEDICAL HISTORY : Parkinson's. Hypertension. Gastroesophageal reflux disease.Basal cell cancer. SURGICAL HISTORY : Inguinal hernia repair. Cholecystectomy. ENCOUNTER: Initial ACUITY: 1 day PAIN SCALE: 2/10 LOCATION: cranial TECHNIQUE: Multiple contiguous axial images were obtained of the head. Using automated exposure control and adj ustment of the mA and/or kV according to patient size, radiation dose was kept as low as reasonably a chievable to obtain optimal diagnostic quality images. DICOM format image data is available electro nically for review and comparison. FINDINGS: CEREBRUM: The ventricles are normal for age. No evidence of midline shift, mass lesion, hemorrhage or acute in farction. No extra-axial fluid collections are seen. POSTERIOR FOSSA: The cerebellum and brainstem are intact. The 4th ventricle is midline. The cerebellopontine angle i s unremarkable. EXTRACRANIAL: The visualized portion of the orbits is intact. SKULL: The calvaria is intact. No evidence of skull fracture. CONCLUSION: Negative noncontrast CT brain. Jagdeep Gates MD on May 03, 2017 at 18:10 Board Certified Radiologist. This report was verified electronically.
== END 2017-05-03 20:04 | disposition home or self-care (01) ==
LOC: PHED 15:34
DX: S01.81XA Laceration without foreign body of other part of head, initial encounter (principal); S09.90XA Unspecified injury of head, initial encounter; S50.311A Abrasion of right elbow, initial encounter; R42 Dizziness and giddiness; I10 Essential (primary) hypertension; G20 Parkinson's disease; E11.9 Type 2 diabetes mellitus without complications; W01.198A Fall on same level from slipping, tripping and stumbling with subsequent striking against other object, initial encounter
CPT/HCPCS: 12013; 70450; 80053; 81001; 85025

== ENCOUNTER 2017-05-21 04:58 | Inpatient (IN) | payer MEDICARE ==
[~2017-05-21] VITALS: Ht 182.9 cm; Wt 75.0 kg
[2017-05-21] VITALS (8 sets, daily range): BP systolic 101–144; BP diastolic 56–70; PULSE 88–118; RESP 16–20; TEMP 97.1–98.9; O2SAT 93–96
[~2017-05-21 04:58] MED LIST changes: -AMAN100C18 PO; +AMAN100T PO; +NAPR220C22 PO; -NAPR220T95 PO; -OMEP20TA PO; +OMEP20TA93 PO; +PENI500T PO
[2017-05-21] MEDS ORDERED: ONDANSETRON HCL 4 MG/2 ML VIAL IVP ONE (05:30)
[2017-05-21] MEDS ORDERED: SODIUM CHLORIDE 0.9% FLUSH 10 ML FLUSH IV FLUSH PRN (05:30)
--- NOTE | 2017-05-21 05:34 | PD ---
HPI Chief Complaint: GI Complaint Time Seen by Provider: 05:21 Travel History International Travel<30 days: No Contact w/Intl Traveler<30days: No Traveled to known affect area: No History of Present Illness HPI This is a 67-year-old male who has a history of a laparoscopic cholecystectomy and inguinal hernia repair which was followed by an incarcerated internal hernia which underwent surgical repair in July 2015. The patient is a poor historian and has a history of Parkinson's disease so most history is obtained from his . She says for the past 5 days the patient has not had a bowel movement. She's been administering laxatives and enemas but the patient's not been improving. Intermittently the patient has severe pain in his mid abdomen which lasts for several minutes and then subsides. Today he started to have vomiting which prompted her to bring him to the emergency department. His vomiting is dark and stool-like in color. PFSH Past Medical History Arthritis: Yes (knees) Cancer: Yes (basal cell skin) Cardiovascular Problems: Yes Diabetes: No Endocrine: No Gastrointestinal Disorders: Yes (GERD, (CURRENT GB PROB), CONSTIPATION) GERD: Yes Genitourinary: No Hepatitis: No Hiatal Hernia: No Hypertension: Yes Immune Disorder: No Inguinal Hernia: Yes Implanted Vascular Access Dvce: Yes Musculoskeletal: Yes Neurologic: Yes (PARKINSON'S/ DYSPHASIA, recent confusion) Parkinson's Disease: Yes Psychiatric: No Reproductive: No Respiratory: No Thyroid Disease: No Tetanus Vaccination: Unknown Influenza Vaccination: Yes Past Surgical History AICD: No Cardiac Surgery: No Cholecystectomy: Yes (06/2015) Ear Surgery: No Endocrine Surgery: No Eye Surgery: No Genitourinary Surgery: Yes (TURP) Joint Replacement: Yes (CHASITY.KNEES) Neurologic Surgery: No Oral Surgery: No Pacemaker: No Thoracic Surgery: No Other Surgery: Yes (right HERNIA REPAIR) Social History Alcohol Use: Yes (RARELY-beer) Tobacco Use: No Substance Use: No Allergies-Medications (Allergen,Severity, Reaction): Coded Allergies: promethazine (Unverified Adverse Reaction, Unknown, avoid r/t parkinson's , 05/21/17) IINSTRUCTED BY PCP TO AVOID DUE TO PARKINSON'S DIS. Reported Meds & Prescriptions Reported Meds & Active Scripts Active Reported Glycopyrrolate 1 Mg Tab 1 Mg PO DAILY B-12 Quick Dissolve (Methylcobalamin Odt) 5,000 Mcg Tab 1,000 Mcg SL DAILY Amantadine (Amantadine HCl) 100 Mg Tab 100 Mg PO TID Aleve (Naproxen Sodium) 220 Mg Capsule 1 Cap PO BID Furosemide 40 Mg Tab 40 Mg PO DAILY PRN Escitalopram (Escitalopram Oxalate) 10 Mg Tab 10 Mg PO DAILY Sinemet (Carbidopa/Levodopa) 10-100 Mg Tab 1 Tab PO TID Mirapex ER 24 HR (Pramipexole Dihydrochloride) 4.5 Mg Tab 4.5 Mg PO DAILY Omeprazole 20 Mg Tab 20 Mg PO DAILY Enalapril (Enalapril Maleate) 10 Mg Tab 10 Mg PO DAILY Review of Systems ROS Limitations: Poor Historian Physical Exam Narrative GENERAL: Actively vomiting fecal material SKIN: Focused skin assessment warm and dry. HEAD: Atraumatic. Normocephalic. EYES: Pupils equal and round. No injection or drainage. ENT: Moist mucous membranes NECK: Trachea midline. CARDIOVASCULAR: Regular rate and rhythm. No murmur appreciated. RESPIRATORY: Clear to auscultation. Breath sounds equal bilaterally. GASTROINTESTINAL: Abdomen soft, non-tender, nondistended. Palpable umbilical hernia defect with no incarcerated bowel MUSCULOSKELETAL: No obvious deformities. NEUROLOGICAL: Awake and alert. No obvious cranial nerve deficits. Moving all extremities. Data Data Last Documented VS Vital Signs Date Time Temp Pulse Resp B/P (MAP) Pulse Ox O2 Delivery O2 Flow Rate FiO2 05/21/17 05:01 97.4 118 20 144/70 (94) 95 Room Air Orders Orders Complete Blood Count With Diff (05/21/17 05:23) Comprehensive Metabolic Panel (05/21/17 05:23) Lipase (05/21/17 05:23) Lactic Acid (05/21/17 05:23) Urinalysis - C+S If Indicated (05/21/17 05:23) Ct Abd/Pel W Iv Contrast(Rout) (05/21/17 05:23) Iv Access Insert/Monitor (05/21/17 05:23) Ecg Monitoring (05/21/17 05:23) Oximetry (05/21/17 05:23) Ondansetron Inj (Zofran Inj) (05/21/17 05:30) Sodium Chloride 0.9% Flush (Ns Flush) (05/21/17 05:30) Piperacil-Tazo 3.375 Gm Premix (Zosyn 3. (05/21/17 06:45) Iohexol 350 Inj (Omnipaque 350 Inj) (05/21/17 06:37) Ng Gastric Tube Insert/Monitor (05/21/17 06:57) Labs Laboratory Tests Test 05/21/17 05:31 05/21/17 05:33 05/21/17 05:53 White Blood Count 17.0 TH/MM3 Red Blood Count 4.53 MIL/MM3 Hemoglobin 14.5 GM/DL Hematocrit 41.9 % Mean Corpuscular Volume 92.3 FL Mean Corpuscular Hemoglobin 31.9 PG Mean Corpuscular Hemoglobin Concent 34.6 % Red Cell Distribution Width 13.4 % Platelet Count 395 TH/MM3 Mean Platelet Volume 7.7 FL Neutrophils (%) (Auto) 90.1 % Lymphocytes (%) (Auto) 3.6 % Monocytes (%) (Auto) 6.1 % Eosinophils (%) (Auto) 0.1 % Basophils (%) (Auto) 0.1 % Neutrophils # (Auto) 15.3 TH/MM3 Lymphocytes # (Auto) 0.6 TH/MM3 Monocytes # (Auto) 1.0 TH/MM3 Eosinophils # (Auto) 0.0 TH/MM3 Basophils # (Auto) 0.0 TH/MM3 CBC Comment DIFF FINAL Differential Comment Blood Urea Nitrogen 30 MG/DL Creatinine 1.48 MG/DL Random Glucose 166 MG/DL Total Protein 8.0 GM/DL Albumin 4.7 GM/DL Calcium Level 10.3 MG/DL Alkaline Phosphatase 121 U/L Aspartate Amino Transf (AST/SGOT) 19 U/L Alanine Aminotransferase (ALT/SGPT) 16 U/L Total Bilirubin 0.9 MG/DL Sodium Level 132 MEQ/L Potassium Level 3.1 MEQ/L Chloride Level 85 MEQ/L Carbon Dioxide Level 34.9 MEQ/L Anion Gap 12 MEQ/L Estimat Glomerular Filtration Rate 47 ML/MIN Lipase 164 U/L Lactic Acid Level 1.6 mmol/L Urine Color YELLOW Urine Turbidity CLEAR Urine pH 5.5 Urine Specific [place] 1.023 Urine Protein 30 mg/dL Urine Glucose (UA) NEG mg/dL Urine Ketones TRACE mg/dL Urine Occult Blood NEG Urine Nitrite NEG Urine Bilirubin NEG Urine Urobilinogen 2.0 MG/DL Urine Leukocyte Esterase NEG Urine RBC 1 /hpf Urine WBC 2 /hpf Urine Bacteria RARE /hpf Urine Hyaline Casts 23 /lpf Urine Mucus FEW /lpf Microscopic Urinalysis Comment CULT NOT INDICATED MDM Medical Decision Making Medical Screen Exam Complete: Yes Emergency Medical Condition: Yes Interpretation(s) Afebrile, tachycardic, mild hypertension Leukocytosis Renal insufficiency Lactic acid is 1.6 Urinalysis is negative for infection Last 24 hours Impressions Abdomen/Pelvis CT 05/21/17 0523 Signed Impressions: Service Date/Time: Sunday, May 21, 2017 06:36 - CONCLUSION: 1. Findings of small bowel obstruction with transition zone in the right lower quadrant. Porter Burt MD Differential Diagnosis Small bowel obstruction, incarcerated hernia, strangulated hernia, dehydration Narrative Course This is a 67-year-old male who presents to the emergency department with vomiting of fecal material following 5 days of constipation. He has a history of multiple abdominal surgeries. He was placed in a monitor and an IV was established. He has a benign exam currently although he said he had severe pain earlier this morning prior to arrival. I did see him at the time that he had his internal hernia incarceration and he appears much more comfortable than he did then. He was placed on a monitor and an IV was established. Labs demonstrate a leukocytosis. The patient was given a dose of Zosyn. CT confirms a small bowel obstruction. NG tube will be placed and the patient will be admitted to medicine with a surgical consultation to Dr. Shen as he is known to him. Diagnosis Primary Impression: SBO (small bowel obstruction) Admitting Information Admitting Physician Requests: Admit Jody Ramirez MD May 21, 2017 05:34
[2017-05-21] MEDS ORDERED: METH5000 SL (05:53)
[2017-05-21] MEDS ORDERED: GLYC1TAB17 PO (05:53)
[2017-05-21 05:54] LABS: AUTOMATED NEUTROPHIL # 15.3 TH/MM3 (1.8-7.7); BASOPHIL % 0.1 % (0.0-2.0); EOSINOPHIL % 0.1 % (0.0-4.0); HEMATOCRIT 41.9 % (39.0-51.0); HEMO FLAGS DIFF FINAL; LYMPH % 3.6 % (9.0-44.0); LYMPHOCYTE # 0.6 TH/MM3 (1.0-4.8); MEAN CELL VOLUME 92.3 FL (80.0-100.0); MEAN CORPUSCULAR HEMOGLOBIN 31.9 PG (27.0-34.0); MEAN CORPUSCULAR HGB CONC 34.6 % (32.0-36.0); MONO % 6.1 % (0.0-8.0); NEUT % 90.1 % (16.0-70.0); PLATELET COUNT 395 TH/MM3 (150-450); RED BLOOD COUNT 4.53 MIL/MM3 (4.50-5.90); RED CELL DISTRIBUTION WIDTH 13.4 % (11.6-17.2)
[2017-05-21 06:23] LABS: ANION GAP 12 MEQ/L (5-15); AST (GOT) 19 U/L (15-37); BICARBONATE 34.9 MEQ/L (21.0-32.0); BLOOD UREA NITROGEN 30 MG/DL (7-18); CHLORIDE 85 MEQ/L (98-107); GLOMERULAR FILTRATION RATE 47 ML/MIN (>89); POTASSIUM 3.1 MEQ/L (3.5-5.1); SODIUM (NA) 132 MEQ/L (136-145)
[2017-05-21 06:23] LABS: BACTERIA, URINE RARE /hpf; BLOOD, URINE NEG (NEG); COMMENT (UR) CULT NOT INDICATED; CULTURE IF INDICATED CULT NOT INDICATED; GLUCOSE,URINE NEG (NEG); HYALINE CAST, URINE 23 /lpf (RARE); KETONE, URINE TRACE mg/dL (NEG); MUCUS URINE FEW /lpf (OCC); NITRITE,URINE NEG (NEG); PH, URINE 5.5 (5.0-8.5); URINE COLOR YELLOW (YELLW/STRAW)
[2017-05-21 06:24] LABS: ALT (GPT) 16 U/L (12-78)
[2017-05-21 06:26] LABS: ALKALINE PHOSPHATASE 121 U/L (45-117); TOTAL BILIRUBIN ADULT 0.9 MG/DL (0.2-1.0)
[2017-05-21] MEDS ORDERED: IOHEXOL 350 MG/ML 10 ML VIAL (for RAD DIAG) IVCONTRAST ONE (06:37)
[2017-05-21] MEDS ORDERED: PIPERACIL-TAZO 3.375 GM PREMIX 50 ML IV ONE (06:45)
--- NOTE | 2017-05-21 06:50 | RADRPT ---
EXAM DATE/TIME: 05/21/2017 06:36 [facility] COMPARISON: CT ABDOMEN & PELVIS W CONTRAST, August 04, 2015, 20:33. INDICATIONS : Lower abdominal pain with dark emesis. IV CONTRAST: 95 cc Omnipaque 350 (iohexol) IV ORAL CONTRAST: No oral contrast ingested. RADIATION DOSE: 7.20 CTDIvol (mGy) MEDICAL HISTORY : Cardiovascular disease. Parkinsons. Gastroesophageal reflux disease.Hernia. Skin cancer SURGICAL HISTORY : Cholecystectomy. TURP. ENCOUNTER: Initial ACUITY: 1 day PAIN SCALE: 7/10 LOCATION: Bilateral abdomen TECHNIQUE: Volumetric scanning of the abdomen and pelvis was performed. Using automated exposure control and ad justment of the mA and/or kV according to patient size, radiation dose was kept as low as reasonably achievable to obtain optimal diagnostic quality images. DICOM format image data is available electro nically for review and comparison. FINDINGS: Examination of the lung bases demonstrates no abnormality. No pleural fluid is identified. No pulmona ry nodules are present. Calcified granuloma is present in the left lung. The liver and spleen are nor mal in size and no focal defects are identified. The gallbladder is absent. The pancreas demonstrates normal contour without evidence of mass or ductal dilatation. The adrenal glands and kidneys appear normal bilaterally. No hydronephrosis or mass lesions are identified. There is small bowel dilatation characteristic of obstruction with a fluid-filled stomach as well as fluid in the esophagus. There i s a transition zone in the right lower quadrant. No free fluid is identified. Examination of the pelvis demonstrates no evidence of free fluid or pelvic mass. No abnormally enlarg ed inguinal or retroperitoneal lymph nodes are present. The bladder is unremarkable. CONCLUSION: 1. Findings of small bowel obstruction with transition zone in the right lower quadrant. Porter Burt MD on May 21, 2017 at 6:45 Board Certified Radiologist. This report was verified electronically.
[2017-05-21] MEDS ORDERED: LIDOCAINE VISCOUS 2% SOLN 15 ML UDC SWISH-SPIT ONE (07:15)
[2017-05-21] MEDS ORDERED: ONDANSETRON HCL 4 MG/2 ML VIAL IVP PRN (08:30)
[2017-05-21] MEDS ORDERED: NALOXONE HCL 0.4 MG/ML AMP IV PUSH PRN (08:30)
--- NOTE | 2017-05-21 08:31 | HHI.HP ---
cc: Yancy Han MD [facility] Service [facility] Primary Care Physician Yancy Han MD Admission Diagnosis small bowel obstruction Diagnoses: (1) Hyponatremia (2) SBO (small bowel obstruction) (3) HTN (hypertension) (4) Parkinson disease (5) Hypokalemia Chief Complaint: Abdominal pain, vomiting Travel History International Travel<30 Days: No Contact w/Intl Traveler <30 Da: No Traveled to Known Affected Are: No History of Present Illness The patient is a 67-year-old male with history of multiple abdominal surgeries and prior small bowel obstruction. He presented to the emergency department with complaint of nausea, vomiting, and abdominal pain. This started yesterday and worsened overnight. He has had constipation for the past 5 days. This has not improved with laxatives, enemas. The patient describes his abdominal pain as burning and severe. It is located around the umbilicus, lasts for a few minutes, and then resolves. Emesis is dark and appears to be fecal material. Review of Systems Constitutional: DENIES: Fever, Chills, Night Sweats Eyes: DENIES: Blurred vision, Vision loss Ears, nose, mouth, throat: DENIES: Hearing loss Respiratory: DENIES: Cough, Wheezing, Sputum production, Shortness of breath Cardiovascular: DENIES: Chest pain, Palpitations, Dyspnea on Exertion, Lower Extremity Edema Gastrointestinal: COMPLAINS OF: Abdominal pain, Constipation, Nausea, Vomiting , DENIES: Diarrhea Genitourinary: DENIES: Urinary frequency, Urinary incontinence, Urgency, Hematuria, Dysuria, Nocturia Musculoskeletal: DENIES: Joint pain, Muscle aches Integumentary: DENIES: Pruritus, Rash Hematologic/lymphatic: DENIES: Bruising Neurologic: DENIES: Headache Past Family Social History Past Medical History History of basal cell skin cancer GERD Constipation Osteoarthritis of the knees Hypertension Parkinson's disease Past Surgical History TURP Bilateral knee replacement Cholecystectomy Right inguinal hernia repair Reported Medications Glycopyrrolate 1 Mg Tab 1 Mg PO DAILY B-12 Quick Dissolve (Methylcobalamin Odt) 5,000 Mcg Tab 1,000 Mcg SL DAILY Amantadine (Amantadine HCl) 100 Mg Tab 100 Mg PO TID Aleve (Naproxen Sodium) 220 Mg Capsule 1 Cap PO BID Furosemide 40 Mg Tab 40 Mg PO DAILY PRN Escitalopram (Escitalopram Oxalate) 10 Mg Tab 10 Mg PO DAILY Sinemet (Carbidopa/Levodopa) 10-100 Mg Tab 1 Tab PO TID Mirapex ER 24 HR (Pramipexole Dihydrochloride) 4.5 Mg Tab 4.5 Mg PO DAILY Omeprazole 20 Mg Tab 20 Mg PO DAILY Enalapril (Enalapril Maleate) 10 Mg Tab 10 Mg PO DAILY Allergies: Coded Allergies: promethazine (Unverified Adverse Reaction, Unknown, avoid r/t parkinson's , 05/21/17) IINSTRUCTED BY PCP TO AVOID DUE TO PARKINSON'S DIS. Family History Father had prostate cancer. Social History Denies alcohol, tobacco, or illicit drug use. Physical Exam Vital Signs Vital Signs Date Time Temp Pulse Resp B/P (MAP) Pulse Ox O2 Delivery O2 Flow Rate FiO2 05/21/17 07:58 103 16 124/66 (85) 94 Room Air 05/21/17 05:01 97.4 118 20 144/70 (94) 95 Room Air Physical Exam GENERAL: Elderly male in no acute distress. NG tube in place. HEENT: Normocephalic, atraumatic. Pupils equal, round and reactive. Extraocular movements intact. No scleral icterus. No injection or drainage. Oropharynx is clear. Mucous membranes are moist. Poor dentition. CARDIOVASCULAR: Regular rate and rhythm without murmurs, gallops, or rubs. RESPIRATORY: Clear to auscultation. No wheezes, rales, or rhonchi. Breathing is non-labored. GASTROINTESTINAL: Abdomen soft, tender to palpation in the periumbilical region , nondistended. Decreased bowel sounds. EXTREMITIES: No lower extremity edema. No calf tenderness. PSYCH: Alert, answers questions appropriately. Speech is quiet and somewhat difficult to understand at times. Laboratory Laboratory Tests Test 05/21/17 05:31 05/21/17 05:33 05/21/17 05:53 White Blood Count 17.0 Red Blood Count 4.53 Hemoglobin 14.5 Hematocrit 41.9 Mean Corpuscular Volume 92.3 Mean Corpuscular Hemoglobin 31.9 Mean Corpuscular Hemoglobin Concent 34.6 Red Cell Distribution Width 13.4 Platelet Count 395 Mean Platelet Volume 7.7 Neutrophils (%) (Auto) 90.1 Lymphocytes (%) (Auto) 3.6 Monocytes (%) (Auto) 6.1 Eosinophils (%) (Auto) 0.1 Basophils (%) (Auto) 0.1 Neutrophils # (Auto) 15.3 Lymphocytes # (Auto) 0.6 Monocytes # (Auto) 1.0 Eosinophils # (Auto) 0.0 Basophils # (Auto) 0.0 CBC Comment DIFF FINAL Differential Comment Blood Urea Nitrogen 30 Creatinine 1.48 Random Glucose 166 Total Protein 8.0 Albumin 4.7 Calcium Level 10.3 Alkaline Phosphatase 121 Aspartate Amino Transf (AST/SGOT) 19 Alanine Aminotransferase (ALT/SGPT) 16 Total Bilirubin 0.9 Sodium Level 132 Potassium Level 3.1 Chloride Level 85 Carbon Dioxide Level 34.9 Anion Gap 12 Estimat Glomerular Filtration Rate 47 Lipase 164 Lactic Acid Level 1.6 Urine Color YELLOW Urine Turbidity CLEAR Urine pH 5.5 Urine Specific Fowler 1.023 Urine Protein 30 Urine Glucose (UA) NEG Urine Ketones TRACE Urine Occult Blood NEG Urine Nitrite NEG Urine Bilirubin NEG Urine Urobilinogen 2.0 Urine Leukocyte Esterase NEG Urine RBC 1 Urine WBC 2 Urine Bacteria RARE Urine Hyaline Casts 23 Urine Mucus FEW Microscopic Urinalysis Comment CULT NOT INDICATED Result Diagram: 05/21/17 0531 05/21/1731 Imaging Last Impressions Abdomen/Pelvis CT 05/21/17522 Signed Impressions: Service Date/Time: Sunday, May 21, 2017 06:36 - CONCLUSION: 1. Findings of small bowel obstruction with transition zone in the right lower quadrant. Porter Burt MD Caprini VTE Risk Assessment Caprini VTE Risk Assessment: Mod/High Risk (score >= 2) Caprini Risk Assessment Model Point Value = 1 Point Value = 2 Point Value = 3 Point Value = 5 Age 41-60 Minor surgery BMI > 25 kg/m2 Swollen legs Varicose veins or History of unexplained or recurrent spontaneous Oral contraceptives or hormone replacement Sepsis (< 1 month) Serious lung disease, including pneumonia (< 1 month) Abnormal pulmonary function Acute myocardial infarction Congestive heart failure (< 1 month) History of inflammatory bowel disease Medical patient at bed rest Age 61-74 Arthroscopic surgery Major open surgery (> 45 min) Laparoscopic surgery (> 45 min) Malignancy Confined to bed (> 72 hours) Immobilizing plaster cast Central venous access Age >= 75 History of VTE Family history of VTE Factor V Leiden Prothrombin [id number] Lupus anticoagulant Anticardiolipin antibodies Elevated serum homocysteine Heparin-induced thrombocytopenia Other congenital or acquired thrombophilia Stroke (< 1 month) Elective arthroplasty Hip, pelvis, or leg fracture Acute spinal cord injury (< 1 month) Prophylaxis Regimen Total Risk Factor Score Risk Level Prophylaxis Regimen 0-1 Low Early ambulation 2 Moderate Order ONE of the following: *Sequential Compression Device (SCD) *Heparin 5000 units SQ BID 3-4 Higher Order ONE of the following medications: *Heparin 5000 units SQ TID *Enoxaparin/Lovenox 40 mg SQ daily (WT < 150 kg, CrCl > 30 mL/min) *Enoxaparin/Lovenox 30 mg SQ daily (WT < 150 kg, CrCl > 10-29 mL/min) *Enoxaparin/Lovenox 30 mg SQ BID (WT < 150 kg, CrCl > 30 mL/min) AND/OR *Sequential Compression Device (SCD) 5 or more Highest Order ONE of the following medications: *Heparin 5000 units SQ TID (Preferred with Epidurals) *Enoxaparin/Lovenox 40 mg SQ daily (WT < 150 kg, CrCl > 30 mL/min) *Enoxaparin/Lovenox 30 mg SQ daily (WT < 150 kg, CrCl > 10-29 mL/min) *Enoxaparin/Lovenox 30 mg SQ BID (WT < 150 kg, CrCl > 30 mL/min) AND *Sequential Compression Device (SCD) Assessment and Plan Assessment and Plan 1. Small bowel obstruction: NG tube to suction. Consult patient's general surgeon, Dr. Shen. Keep nothing by mouth. IV fluids. 2. Hypokalemia: Supplement potassium in IV fluids. 3. Hyponatremia: IV normal saline. 4. Hypertension: Blood pressure controlled. Oral antihypertensive medications on hold secondary to small bowel obstruction. 5. Parkinson's disease: Medications on hold as patient is nothing by mouth. 6. DVT prophylaxis: SCDs, CLAYTON higgins. Avoid chemical prophylaxis in anticipation of possible surgery. Code Status FULL CODE Alex Gupta MD May 21, 2017 08:31
[2017-05-21] MEDS: NS + KCL 20 MEQ INJ 1,000 ML IV SCH (08:48)
[2017-05-21] MEDS ORDERED: HEPARIN SODIUM - SQ 10,000 UNITS/ML VIAL SQ SCH (09:00)
[2017-05-21] MEDS ORDERED: PRAMIPEXOLE PO SCH (13:45)
[2017-05-21] MEDS: ESCITALOPRAM OXALATE 10 MG TAB PO SCH (17:48)
[2017-05-21] MEDS: AMANTADINE HCL 100 MG CAP PO SCH (17:48)
[2017-05-21] MEDS: CARBIDOPA/LEVODOPA 10 MG/100 MG TAB PO SCH (17:48)
[2017-05-21] MEDS: GLYCOPYRROLATE 1 MG TAB PO SCH (17:48)
--- NOTE | 2017-05-21 18:10 | MB ---
cc: JEOVANNY QUINN M.D. DATE OF CONSULTATION 05/21/2017 REASON FOR CONSULTATION Small bowel obstruction. HISTORY OF THE PRESENT ILLNESS This is a pleasant 67-year-old gentleman who has had a laparoscopic cholecystectomy, laparoscopic inguinal hernia repair on the right side with some time after that a laparoscopic lysis of adhesions. He had been following Dr. Shen as he has had a couple of episodes where they thought he had a small bowel obstruction again but this resolved with nonoperative therapy. He comes back to the emergency room after a 5-day history of constipation. He had seen Dr. Shen earlier last week and he came into the emergency room over the weekend with one episode of profuse vomiting that was malodorous. He had not had a bowel movement. CT scan was done which showed what was felt to be a small bowel obstruction and surgery was consulted. PAST MEDICAL HISTORY Significant for: 1. Known Parkinson's disease. 2. He is hard of hearing. REVIEW OF SYSTEMS He has had some nausea and vomiting, constipation. He has had no cardiac events. He has a neurologic event with Parkinson's disease controlled with medications. No shortness of breath. He has intermittent abdominal pain that kind of comes and goes, crampy pain and his says he has had a couple episodes where he thought he had to come to the emergency room and then it subsided. He does have hypertension. ALLERGIES INCLUDE PROMETHAZINE. MEDICATIONS As an outpatient are listed in [employer] system which include his Parkinson's disease and hypertensive reflux disease and some pain medication. PHYSICAL EXAMINATION GENERAL: On physical exam he has an NG tube in place, reported 1700 mL since being admitted. He looks fairly comfortable. His says he has kind of wiped out. He does not complain of any belly pain at this time. NECK: Supple. CHEST: Clear. ABDOMEN: Thin, soft without rebound or guarding. EXTREMITIES: He has tremor consistent with Parkinson's disease. He is able to move his extremities. LABORATORY DATA He had a white count 17, H&H of 14 and 41. Chemistry showed a potassium of 3.4, creatinine 1.4. Alkaline phos slightly elevated. Lactic acid is normal. In looking at his previous labs on previous admission he appears to be dehydrated and hypokalemic, and his calcium is elevated. IMAGING STUDIES CT scan shows what appears to be a small bowel obstruction in the right lower quadrant. PLAN The plan at this time, he will be hydrated, replace the potassium. We will check a magnesium and we will follow him clinically. He apparently had a couple episodes like this where they resolved with nonoperative therapy. If he does not resolve in 24-48 hours may require exploration. This is was discussed with the and the patient who was somewhat sleepy but we will follow closely. I will order a KUB in the morning. Repeat blood work. Jeovanny Quinn MD JDB/KK /4:52 PM /5:58 PM
[2017-05-22 00:25] VITALS: BP 90/62; PULSE 101; RESP 17; TEMP 96.3; O2SAT 93
[2017-05-22] MEDS: NS + KCL 20 MEQ INJ 1,000 ML IV SCH ×3 (04:18→20:14)
[2017-05-22 06:30] LABS: BICARBONATE 35.6 MEQ/L (21.0-32.0); MAGNESIUM 2.9 MG/DL (1.5-2.5); POTASSIUM 3.2 MEQ/L (3.5-5.1)
[2017-05-22 06:42] LABS: AUTOMATED NEUTROPHIL # 7.1 TH/MM3 (1.8-7.7); BASOPHIL % 0.3 % (0.0-2.0); EOSINOPHIL # 0.1 TH/MM3 (0-0.4); EOSINOPHIL % 1.3 % (0.0-4.0); HEMATOCRIT 36.5 % (39.0-51.0); HEMO FLAGS DIFF FINAL; LYMPH % 10.1 % (9.0-44.0); LYMPHOCYTE # 0.9 TH/MM3 (1.0-4.8); MEAN CORPUSCULAR HEMOGLOBIN 31.9 PG (27.0-34.0); MEAN CORPUSCULAR HGB CONC 34.2 % (32.0-36.0); MONO % 8.2 % (0.0-8.0); NEUT % 80.1 % (16.0-70.0); PLATELET COUNT 291 TH/MM3 (150-450); RED BLOOD COUNT 3.93 MIL/MM3 (4.50-5.90); RED CELL DISTRIBUTION WIDTH 13.6 % (11.6-17.2); WHITE BLOOD COUNT 8.9 TH/MM3 (4.0-11.0)
--- NOTE | 2017-05-22 07:19 | RADRPT ---
EXAM DATE/TIME: 05/22/2017 05:28 [facility] COMPARISON: CT ABDOMEN & PELVIS W CONTRAST, May 21, 2017, 6:36. INDICATIONS : Abdominal pain, evaluate obstruction MEDICAL HISTORY : Cardiovascular disease. . Parkinsons. Gastroesophageal reflux disease.Hernia. Skin cancer SURGICAL HISTORY : Cholecystectomy. TURP ENCOUNTER: Subsequent ACUITY: 2 days PAIN SCORE: 7/10 LOCATION: Bilateral abdomen FINDINGS: Supine view of the abdomen was performed. The abdominal bowel gas pattern continues to demonstrate a small bowel ileus but with decreasing small bowel distention. Air and stool remain evident in the co moo. Postcholecystectomy clips are noted. There is no evidence of free air or mass effect. CONCLUSION: Persistent but improving small bowel ileus characteristic of a partial small bowel obstruction Calvin Craig MD on May 22, 2017 at 7:14 Board Certified Radiologist. This report was verified electronically.
[2017-05-22 07:41] VITALS: O2SAT 95
[2017-05-22] MEDS ORDERED: POTASSIUM CHLOR 20 MEQ PREMIX 100 ML IV ONE (07:45)
[2017-05-22 08:00] VITALS: BP 109/69; PULSE 91; RESP 17; TEMP 98.3; O2SAT 94
[2017-05-22] MEDS: AMANTADINE HCL 100 MG CAP PO SCH ×3 (09:09→17:16)
[2017-05-22] MEDS: ESCITALOPRAM OXALATE 10 MG TAB PO SCH (09:09)
[2017-05-22] MEDS: ENALAPRIL MALEATE 10 MG TAB PO SCH (09:10)
[2017-05-22] MEDS: GLYCOPYRROLATE 1 MG TAB PO SCH (09:10)
[2017-05-22] MEDS: CARBIDOPA/LEVODOPA 10 MG/100 MG TAB PO SCH ×3 (09:10→17:16)
[2017-05-22] MEDS: PANTOPRAZOLE SOD 20 MG DELAYED RELEASE TAB PO SCH (09:10)
[2017-05-22 11:21] VITALS: BP 93/69; PULSE 90; RESP 18; TEMP 97.8; O2SAT 93
--- NOTE | 2017-05-22 14:04 | HHI.PR ---
cc: Jeovanny Lott MD Subjective Subjective Notes DAILY PROGRESS NOTE FOR SURGICAL ATTENDING, DR. JEOVANNY LOTT Up to chair NGT came out of night Had small BM at bedside Objective Vitals/I&O Vital Signs Date Time Temp Pulse Resp B/P (MAP) Pulse Ox O2 Delivery O2 Flow Rate FiO2 05/22/17 11:21 97.8 90 18 93/69 (77) 93 05/22/17 07:41 21 05/21/17 07:58 Room Air Labs Laboratory Tests Test 05/22/17 05:10 White Blood Count 8.9 Red Blood Count 3.93 Hemoglobin 12.5 Hematocrit 36.5 Mean Corpuscular Volume 93.0 Mean Corpuscular Hemoglobin 31.9 Mean Corpuscular Hemoglobin Concent 34.2 Red Cell Distribution Width 13.6 Platelet Count 291 Mean Platelet Volume 7.7 Neutrophils (%) (Auto) 80.1 Lymphocytes (%) (Auto) 10.1 Monocytes (%) (Auto) 8.2 Eosinophils (%) (Auto) 1.3 Basophils (%) (Auto) 0.3 Neutrophils # (Auto) 7.1 Lymphocytes # (Auto) 0.9 Monocytes # (Auto) 0.7 Eosinophils # (Auto) 0.1 Basophils # (Auto) 0.0 CBC Comment DIFF FINAL Differential Comment Blood Urea Nitrogen 42 Creatinine 1.26 Random Glucose 85 Calcium Level 8.9 Magnesium Level 2.9 Sodium Level 138 Potassium Level 3.2 Chloride Level 93 Carbon Dioxide Level 35.6 Anion Gap 9 Estimat Glomerular Filtration Rate 57 Cardiovascular: Regular Lungs: Clear Abdomen: Non-distended, Non-tender Extremities: No edema A/P Problem List: (1) Hypokalemia ICD Codes: E87.6 - Hypokalemia Status: Acute (2) Hyponatremia ICD Codes: E87.1 - Hypo-osmolality and hyponatremia Status: Acute (3) Parkinson disease ICD Codes: G20 - Parkinson's disease Status: Chronic (4) HTN (hypertension) ICD Codes: I10 - Essential (primary) hypertension Status: Acute (5) Partial small bowel obstruction ICD Codes: K56.69 - Other intestinal obstruction Status: Acute Assessment and Plan 67 year old male with SBO -NGT out; leave out for now unless nausea/vomiting -Start sips of clears -Replace K -IVF -+BM overnight -Will continue non operative treatment at this time Attending Statement Abdomen soft No nausea vomiting after NG tube out Had a small bowel movement last night Discussed with at bedside NOTE FOR SURGICAL ATTENDING, DR. JEOVANNY LOTT I agree with above assessment and plan. The exam, history, and the medical decision-making described in the above note were completed with the assistance of the mid-level provider. I reviewed and agree with the findings presented. I attest that I had a [id number] encounter with the patient on the same day, and personally performed and documented my assessment and findings in the medical record. The following services were provided during this hospital visit: Chart data review, vital sign assessments/reviewing monitor data Review of consultations notes if present. Medication orders/review and/or management Ordering and/or reviewing lab tests Ordering and/or interpreting/reviewing x-rays and/or diagnostic studies Care of the patient and discussion of the patient with the care team Documentation time To help prompt me to consider important information that might be impacting today's encounter and assessment, information from prior notes written by myself or my colleagues may have been "brought forward/copy and pasted" into today's note. Problem Qualifiers (1) HTN (hypertension): Qualified Codes: I10 - Essential (primary) hypertension Gavi Kathleen May 22, 2017 14:04 Jeovanny Lott MD May 23, 2017 08:29
--- NOTE | 2017-05-22 14:29 | HHI.PR ---
Subjective Remarks Follow-up small bowel obstruction. Patient pulled his NG tube out last night. He reports having a bowel movement this morning. Abdominal pain is improving. He is tolerating small amounts of clear liquids. Objective Vitals Vital Signs Date Time Temp Pulse Resp B/P (MAP) Pulse Ox O2 Delivery O2 Flow Rate FiO2 05/22/17 11:21 97.8 90 18 93/69 (77) 93 05/22/17 08:00 98.3 91 17 109/69 (82) 94 05/22/17 07:41 95 21 05/22/17 00:25 96.3 101 17 90/62 (71) 93 05/21/17 20:30 97.1 91 17 103/63 (76) 93 05/21/17 16:00 97.5 95 18 101/59 (73) 94 I/O 05/21/17 05/21/17 05/21/17 05/22/17 05/22/17 05/22/17 07:00 15:00 23:00 07:00 15:00 23:00 Intake Total 100 ml 0 ml 1000 ml Output Total 1700 ml 500 ml 600 ml Balance -1600 ml -500 ml 400 ml Intake Oral 0 ml 0 ml IV Total 100 ml 1000 ml Output Urine Total 600 ml Gastric Drainage Total 1700 ml 500 ml 0 ml # Voids 1 0 # Bowel Movements 1 0 0 1 Result Diagram: 05/22/17 0510 05/22/17 0510 Imaging Last Impressions Abdomen X-Ray 05/22/17 0600 Signed Impressions: Service Date/Time: Monday, May 22, 2017 05:28 - CONCLUSION: Persistent but improving small bowel ileus characteristic of a partial small bowel obstruction Calvin Craig MD Abdomen/Pelvis CT 05/21/17 0523 Signed Impressions: Service Date/Time: Sunday, May 21, 2017 06:36 - CONCLUSION: 1. Findings of small bowel obstruction with transition zone in the right lower quadrant. Porter Butr MD Objective Remarks General: Elderly male in no acute distress. Heart: Regular rate and rhythm. No murmur. Lungs: Clear to auscultation bilaterally. No wheezes, rales, or rhonchi. Breathing is nonlabored. Abdomen: Soft, nontender, nondistended. Decreased bowel sounds throughout. Extremities: No lower extremity edema. SCDs. Psych: Alert and oriented. Procedures None Urinary Catheter: No Vascular Central Line Catheter: No A/P Problem List: (1) Hyponatremia ICD Code: E87.1 - Hypo-osmolality and hyponatremia (2) SBO (small bowel obstruction) ICD Code: K56.69 - Other intestinal obstruction Status: Acute (3) HTN (hypertension) ICD Code: I10 - Essential (primary) hypertension Status: Acute (4) Parkinson disease ICD Code: G20 - Parkinson's disease Status: Acute (5) Hypokalemia ICD Code: E87.6 - Hypokalemia Status: Acute Assessment and Plan 1. Small bowel obstruction: Appreciate general surgery recommendations. NG tube pulled out last night. No nausea or vomiting at this time. 2. Hypokalemia: Supplement potassium. 3. Hyponatremia: IV normal saline. 4. Hypertension: Blood pressure controlled. Continue enalapril 5. Parkinson's disease: Continue home medications. 6. DVT prophylaxis: CLAYTON Tirado. Avoid chemical prophylaxis in anticipation of possible surgery. Alex Gupta MD May 22, 2017 14:29
[2017-05-22 16:00] VITALS: BP 95/61; PULSE 80; RESP 18; TEMP 97.5; O2SAT 94
[2017-05-22 20:40] VITALS: BP 115/65; PULSE 80; RESP 17; TEMP 97; O2SAT 94
[2017-05-23] VITALS (8 sets, daily range): BP systolic 95–140; BP diastolic 48–80; PULSE 70–99; RESP 16–20; TEMP 95.6–98.8; O2SAT 93–98
[2017-05-23 07:45] LABS: AUTOMATED NEUTROPHIL # 5.6 TH/MM3 (1.8-7.7); BASOPHIL % 0.3 % (0.0-2.0); EOSINOPHIL # 0.2 TH/MM3 (0-0.4); EOSINOPHIL % 2.7 % (0.0-4.0); HEMATOCRIT 33.9 % (39.0-51.0); HEMO FLAGS DIFF FINAL; LYMPH % 10.2 % (9.0-44.0); LYMPHOCYTE # 0.7 TH/MM3 (1.0-4.8); MEAN CELL VOLUME 94.5 FL (80.0-100.0); MEAN CORPUSCULAR HEMOGLOBIN 32.3 PG (27.0-34.0); MEAN CORPUSCULAR HGB CONC 34.2 % (32.0-36.0); NEUT % 76.8 % (16.0-70.0); PLATELET COUNT 232 TH/MM3 (150-450); RED BLOOD COUNT 3.59 MIL/MM3 (4.50-5.90); RED CELL DISTRIBUTION WIDTH 13.5 % (11.6-17.2); WHITE BLOOD COUNT 7.3 TH/MM3 (4.0-11.0)
[2017-05-23 08:16] LABS: BICARBONATE 29.2 MEQ/L (21.0-32.0); MAGNESIUM 2.5 MG/DL (1.5-2.5); POTASSIUM 3.7 MEQ/L (3.5-5.1)
[2017-05-23] MEDS: ESCITALOPRAM OXALATE 10 MG TAB PO SCH (08:53)
[2017-05-23] MEDS: PANTOPRAZOLE SOD 20 MG DELAYED RELEASE TAB PO SCH (08:53)
[2017-05-23] MEDS: GLYCOPYRROLATE 1 MG TAB PO SCH (08:53)
[2017-05-23] MEDS: ENALAPRIL MALEATE 10 MG TAB PO SCH (08:53)
[2017-05-23] MEDS: AMANTADINE HCL 100 MG CAP PO SCH ×3 (08:54→22:35)
[2017-05-23] MEDS: CARBIDOPA/LEVODOPA 10 MG/100 MG TAB PO SCH ×3 (08:55→22:35)
[2017-05-23] MEDS: NS + KCL 20 MEQ INJ 1,000 ML IV SCH (08:59)
--- NOTE | 2017-05-23 09:43 | HHI.PR ---
Subjective Remarks Follow-up hypokalemia, small bowel obstruction, renal insufficiency. Patient states that he is feeling better today. Had to normal bowel movements. Abdominal pain has improved. No nausea or vomiting today. Objective Vitals Vital Signs Date Time Temp Pulse Resp B/P (MAP) Pulse Ox O2 Delivery O2 Flow Rate FiO2 05/23/17 07:53 97.3 74 18 103/62 (76) 96 05/23/17 04:45 97.0 88 18 100/61 (74) 93 05/23/17 00:40 97.2 81 18 95/57 (70) 94 05/22/17 20:40 97.0 80 17 115/65 (82) 94 05/22/17 16:00 97.5 80 18 95/61 (72) 94 05/22/17 11:21 97.8 90 18 93/69 (77) 93 I/O 05/22/17 05/22/17 05/22/17 05/23/17 05/23/17 05/23/17 07:00 15:00 23:00 07:00 15:00 23:00 Intake Total 1000 ml 720 ml 433 ml 754 ml Output Total 600 ml Balance 400 ml 720 ml 433 ml 754 ml Intake Oral 0 ml 720 ml 240 ml 0 ml IV Total 1000 ml 193 ml 754 ml Output Urine Total 600 ml Gastric Drainage Total 0 ml # Voids 2 1 1 # Bowel Movements 0 2 1 0 Result Diagram: 05/23/17 0610 05/23/17 0610 Imaging Last Impressions Abdomen X-Ray 05/22/17 0600 Signed Impressions: Service Date/Time: Monday, May 22, 2017 05:28 - CONCLUSION: Persistent but improving small bowel ileus characteristic of a partial small bowel obstruction Calvin Craig MD Abdomen/Pelvis CT 05/21/17 0523 Signed Impressions: Service Date/Time: Sunday, May 21, 2017 06:36 - CONCLUSION: 1. Findings of small bowel obstruction with transition zone in the right lower quadrant. Porter Burt MD Objective Remarks General: Elderly male in no acute distress. Heart: Regular rate and rhythm. No murmur. Lungs: Clear to auscultation bilaterally. No wheezes, rales, or rhonchi. Breathing is nonlabored. Abdomen: Soft, nontender, nondistended. Extremities: No lower extremity edema. SCDs. Psych: Alert and oriented. Procedures None Urinary Catheter: No Vascular Central Line Catheter: No A/P Problem List: (1) Hyponatremia ICD Code: E87.1 - Hypo-osmolality and hyponatremia Status: Acute (2) SBO (small bowel obstruction) ICD Code: K56.69 - Other intestinal obstruction Status: Acute (3) HTN (hypertension) ICD Code: I10 - Essential (primary) hypertension Status: Acute (4) Parkinson disease ICD Code: G20 - Parkinson's disease Status: Chronic (5) Hypokalemia ICD Code: E87.6 - Hypokalemia Status: Acute Assessment and Plan 1. Small bowel obstruction: Clinically improved. No nausea or vomiting at this time. Appreciate general surgery recommendations. Possible surgical intervention later today. 2. Hypokalemia: Improved. 3. Hyponatremia: Improved. 4. Hypertension: Blood pressure controlled. Continue enalapril 5. Parkinson's disease: Continue home medications. 6. DVT prophylaxis: CLAYTON Tirado. Avoid chemical prophylaxis in anticipation of possible surgery. Problem Qualifiers (1) HTN (hypertension): Qualified Codes: I10 - Essential (primary) hypertension Alex Gupta MD May 23, 2017 09:43
[2017-05-23] MEDS ORDERED: PHENYLEPH/NS 1000 MCG/10 ML SYR IV ONE (12:00)
[2017-05-23] MEDS ORDERED: KETOROLAC TROMETHAMINE 30 MG/ML (IVP) VIAL IV PUSH ONE (12:00)
[2017-05-23] MEDS ORDERED: ROCURONIUM INJ 50 MG/5 ML SYRINGE IV PUSH ONE (12:00)
[2017-05-23] MEDS ORDERED: LIDOCAINE HCL 1% PF 5 ML AMPULE OTHER ONE (12:00)
[2017-05-23] MEDS ORDERED: ceFAZolin INJ 1,000 MG VIAL IV ONE (12:00)
[2017-05-23] MEDS ORDERED: NEOSTIGMINE 3 MG/3 ML SYR IV ONE (12:00)
[2017-05-23] MEDS ORDERED: PROPOFOL 200 MG/20 ML AMP IV ONE (12:00)
[2017-05-23] MEDS ORDERED: ONDANSETRON HCL 4 MG/2 ML VIAL IV PUSH ONE (12:00)
[2017-05-23] MEDS ORDERED: GLYCOPYRROLATE 1 MG/5 ML SYRINGE IV PUSH ONE (12:00)
[2017-05-23] MEDS ORDERED: metroNIDAZOLE 500 MG INJ 100 ML IV ONE (17:54)
[2017-05-23] MEDS ORDERED: ceFAZolin INJ 1,000 MG VIAL ONE (17:54)
[2017-05-23] MEDS ORDERED: BUPIVACAINE/EPINEPHRINE 0.25% PF 10 ML VIAL INFIL ONE (18:17)
--- NOTE | 2017-05-23 19:52 | HHI.PR ---
cc: Bill Shen MD Immediate Post Op Note Procedure Date: May 23, 2017 Pre Op Diagnosis: Previous small bowel obstruction with abdominal pain Post Op Diagnosis: Same, secondary to previously incarcerated left inguinal hernia Surgeon: Bill Shen Food Stylist(s): Karely Masters CFA Procedure: Diagnostic laparoscopy Laparoscopic left inguinal hernia repair with mesh Primary umbilical hernia repair Findings: No residual obstruction, no intra-abdominal adhesions Complications: None Specimen(s) removed: None Estimated blood loss: 25 ml Anesthesia: General Drains: None IVF (400 ml) Patient to: PACU Patient Condition: Good Date/Time of Procedure: SEE SURGICAL CARE RECORD Bill Shen MD May 23, 2017 19:52
[2017-05-23] MEDS ORDERED: MORPHINE SULFATE 2 MG/ML INJ IV PUSH PRN (20:00)
--- NOTE | 2017-05-23 20:59 | MP ---
cc: SUSAN SHEN MD DATE OF SURGERY: 05/23/2017 PROCEDURE: 1. Diagnostic laparoscopy. 2. Laparoscopic left inguinal hernia repair with mesh. 3. Primary umbilical hernia repair with Prolene. ANESTHESIA General endotracheal SURGEON Eloise Shen MD. ESTIMATED BLOOD LOSS 25 mL FLUIDS: 400 mL Crystalloid COMPLICATIONS None. DRAINS: None. SPECIMEN None. FINDINGS: Left inguinal hernia defect likely cause of intermittent bowel obstruction and lower abdominal pains. No other abnormalities and no intra-abdominal adhesions noted. PROCEDURE IN DETAIL The patient was taken to the operating room and placed on the operating table in the supine position. After an adequate level of general endotracheal anesthesia was achieved the abdomen was prepped and draped in the usual fashion. Time-out was taken confirming the correct patient, site, and procedure to be performed. An incision was made in the umbilicus through the patient's previous hernia and a 5-mm trocar was inserted with the peritoneal cavity directly visualized. The abdomen was insufflated and the patient placed in Trendelenburg position. A 5 mm 30 degrees laparoscope was inserted and the lower abdomen was visualized. The small bowel did not appear to be dilated or distended. The colon appeared to be normal as well. A second 5 mm trocar was placed midway between the umbilicus and the suprapubic region. This entered the abdominal cavity under direct vision uneventfully. The bowel was then manipulated easily and small bowel was run from essentially the ligament of Treitz to the ileocecal valve with no adhesions, kinks or abnormalities noted. The stomach did not appear to be dilated. At this point the patient was noted to have a left inguinal defect and it was felt that this was the cause of his previous intermittent bowel obstructions. The patient's previously repaired right inguinal hernia was intact. At this point the patient's was contacted by telephone with two nurses listening and I explained the situation to her. I recommended that he undergo inguinal hernia repair while he was under general anesthesia so as to minimize any further surgeries. She was agreeable to this. She was familiar with hernia repair as he has had the right side repaired in July of 2015. At this point, a 12 millimeter trocar was placed in the left lower quadrant and a 5 millimeter trocar in the right lower quadrant. Both entered the abdominal cavity under direct vision uneventfully. The suprapubic trocar was left in place but withdrawn slightly. The peritoneum was incised on the left side and peeled downward. The hernia sac was reduced which was a direct inguinal hernia. A window was created behind the spermatic cord structures. A 6 x 6 inch piece of Ultrapro mesh was trimmed in half and then slit longitudinally with the corners rounded. This was placed into the pelvis after cleaning off Ivan's ligament and the anterior abdominal wall fascia. An inferior leaf of mesh was brought under the spermatic cord structures and the mesh was then transfixed to Ivan's ligament with 4.0 mm berta into the transversalis fascia with 4.8 mm berta. The mesh was reattached laterally to create a new internal ring with three 4.8 mm berta. An additional 4.8 mm staple was placed medially to close down the internal ring to prevent any herniation. The surgeon's finger was then placed into the defect and was seen to be completely encircled by mesh by at least 4-5 cm. Insufflation was decreased and the peritoneum was reapproximated with 4.8 mm berta. Insufflation was then discontinued and the 5 mm right lower quadrant and 12-mm left lower quadrant trocars were removed. The laparoscope and umbilical port which had been upsized to a 12 mm balloon trocar were removed as well. The fascia was closed in the right lower quadrant with a [id number] 0 Vicryl suture and in the umbilical hernia with 0 Prolene sutured in an interrupted fashion. The remaining local anesthetic was injected into the left groin. The skin was closed at all of the trocar sites with 4-0 Vicryl in an interrupted buried fashion. All trocar sites were dressed with Steri-Strips. The patient was extubated and taken back to the recovery room in stable condition. Sponge and needle counts were reported to be correct. MD MARTHA Vergara/REED /8:24 PM /8:39 PM
--- NOTE | 2017-05-23 21:24 | EKG ---
Date Performed: 05/23/2017 Time Performed: 16:56:48 PTAGE: 67 years EKG: Sinus rhythm MARKED LEFT AXIS DEVIATION RIGHT BUNDLE BRANCH BLOCK ABNORMAL ECG PREVIOUS TRACING : 08/04/2015 20.06 Compared to prior tracing no significant change DOCTOR: Alberto Ayala Interpretating Date/Time 05/23/2017 21:22:27
[2017-05-24] VITALS (7 sets, daily range): BP systolic 104–158; BP diastolic 44–72; PULSE 63–106; RESP 16–20; TEMP 96.3–98.2; O2SAT 96–98
[2017-05-24] MEDS ORDERED: ACETAMINOPHEN/HYDROcodone 325 MG/7.5 MG TAB PO PRN ×2 (08:00)
[2017-05-24] MEDS: AMANTADINE HCL 100 MG CAP PO SCH ×3 (10:04→18:28)
[2017-05-24] MEDS: PANTOPRAZOLE SOD 20 MG DELAYED RELEASE TAB PO SCH (10:04)
[2017-05-24] MEDS: CARBIDOPA/LEVODOPA 10 MG/100 MG TAB PO SCH ×3 (10:04→18:28)
[2017-05-24] MEDS: ESCITALOPRAM OXALATE 10 MG TAB PO SCH (10:04)
[2017-05-24] MEDS: GLYCOPYRROLATE 1 MG TAB PO SCH (10:05)
[2017-05-24] MEDS: ENALAPRIL MALEATE 10 MG TAB PO SCH (10:05)
[2017-05-24 10:48] LABS: AUTOMATED NEUTROPHIL # 7.3 TH/MM3 (1.8-7.7); BASOPHIL % 0.2 % (0.0-2.0); EOSINOPHIL # 0.2 TH/MM3 (0-0.4); EOSINOPHIL % 2.6 % (0.0-4.0); HEMATOCRIT 35.2 % (39.0-51.0); HEMO FLAGS DIFF FINAL; LYMPH % 5.3 % (9.0-44.0); LYMPHOCYTE # 0.4 TH/MM3 (1.0-4.8); MEAN CELL VOLUME 94.5 FL (80.0-100.0); MEAN CORPUSCULAR HEMOGLOBIN 31.3 PG (27.0-34.0); MEAN CORPUSCULAR HGB CONC 33.1 % (32.0-36.0); MONO % 5.8 % (0.0-8.0); NEUT % 86.1 % (16.0-70.0); PLATELET COUNT 230 TH/MM3 (150-450); RED BLOOD COUNT 3.72 MIL/MM3 (4.50-5.90); RED CELL DISTRIBUTION WIDTH 13.1 % (11.6-17.2); WHITE BLOOD COUNT 8.5 TH/MM3 (4.0-11.0)
[2017-05-24 11:14] LABS: BICARBONATE 25.6 MEQ/L (21.0-32.0); POTASSIUM 3.9 MEQ/L (3.5-5.1)
--- NOTE | 2017-05-24 14:51 | HHI.PR ---
Subjective Remarks Follow up bowel obstruction. Patient feels a little better today. Still having some pain at the surgical site. No nausea or vomiting. He is passing gas, but no bowel movement. Objective Vitals Vital Signs Date Time Temp Pulse Resp B/P (MAP) Pulse Ox O2 Delivery O2 Flow Rate FiO2 05/24/17 12:00 98.2 82 18 123/63 (83) 96 05/24/17 11:51 20 05/24/17 08:00 96.5 88 17 104/56 (72) 98 05/24/17 04:00 98.0 84 20 111/61 (78) 98 05/24/17 00:00 98.1 97 20 121/67 (85) 98 05/23/17 22:17 98.8 99 20 120/66 (84) 98 05/23/17 20:30 98.1 88 20 116/57 (76) 97 Nasal Cannula 2 05/23/17 20:15 82 20 136/61 (86) 98 Nasal Cannula 2 05/23/17 20:00 80 20 110/58 (75) 100 Nasal Cannula 2 05/23/17 19:45 98.1 79 20 107/54 (71) 100 Nasal Cannula 2 05/23/17 18:15 96 Nasal Cannula 2.00 05/23/17 16:50 98.0 83 15 114/68 (83) 96 Manual Cuff/Palpation 05/23/17 15:39 97.2 70 16 114/60 (78) 95 I/O 05/23/17 05/23/17 05/23/17 05/24/17 05/24/17 05/24/17 07:00 15:00 23:00 07:00 15:00 23:00 Intake Total 754 ml 700 ml 789 ml Output Total 25 ml 150 ml Balance 754 ml 675 ml 639 ml Intake Oral 0 ml IV Total 754 ml 789 ml Other 700 ml Output Urine Total 150 ml Estimated Blood Loss 25 ml Bladder Scan Volume Amount 387 ml # Voids 1 3 # Bowel Movements 0 1 Result Diagram: 05/24/17 1015 05/24/17 1015 Objective Remarks General: Elderly male in no acute distress. Heart: Regular rate and rhythm. No murmur. Lungs: Clear to auscultation bilaterally. No wheezes, rales, or rhonchi. Breathing is nonlabored. Abdomen: Soft, appropriate tenderness to palpation at surgical site, nondistended. Extremities: No lower extremity edema. SCDs. Psych: Alert and oriented. Procedures 05/23/17 diagnostic laparoscopy. Laparoscopic left inguinal hernia repair with mesh. Primary umbilical hernia repair with Prolene. Urinary Catheter: No Vascular Central Line Catheter: No A/P Problem List: (1) Hyponatremia ICD Code: E87.1 - Hypo-osmolality and hyponatremia Status: Acute (2) SBO (small bowel obstruction) ICD Code: K56.69 - Other intestinal obstruction Status: Acute (3) HTN (hypertension) ICD Code: I10 - Essential (primary) hypertension Status: Acute (4) Parkinson disease ICD Code: G20 - Parkinson's disease Status: Chronic (5) Hypokalemia ICD Code: E87.6 - Hypokalemia Status: Acute Assessment and Plan 1. Small bowel obstruction: Clinically improved. No nausea or vomiting at this time. Appreciate general surgery recommendations. Status post laparoscopy with hernia repair. 2. Hypokalemia: Improved. 3. Hyponatremia: Improved. 4. Hypertension: Blood pressure controlled. Continue enalapril 5. Parkinson's disease: Continue home medications. 6. DVT prophylaxis: CLAYTON Tirado. Discharge Planning When cleared by general surgery. May need SNF. Problem Qualifiers (1) HTN (hypertension): Qualified Codes: I10 - Essential (primary) hypertension Alex Gupta MD May 24, 2017 14:51
--- NOTE | 2017-05-24 18:05 | HHI.PR ---
Subjective Subjective Notes Up to chair No pain Tolerating clears Objective Vitals/I&O Vital Signs Date Time Temp Pulse Resp B/P (MAP) Pulse Ox O2 Delivery O2 Flow Rate FiO2 05/24/17 16:52 97.9 63 18 132/44 (73) 98 05/23/17 20:30 Nasal Cannula 2 05/23/17 18:15 Labs Laboratory Tests Test 05/24/17 10:15 White Blood Count 8.5 Red Blood Count 3.72 Hemoglobin 11.6 Hematocrit 35.2 Mean Corpuscular Volume 94.5 Mean Corpuscular Hemoglobin 31.3 Mean Corpuscular Hemoglobin Concent 33.1 Red Cell Distribution Width 13.1 Platelet Count 230 Mean Platelet Volume 7.4 Neutrophils (%) (Auto) 86.1 Lymphocytes (%) (Auto) 5.3 Monocytes (%) (Auto) 5.8 Eosinophils (%) (Auto) 2.6 Basophils (%) (Auto) 0.2 Neutrophils # (Auto) 7.3 Lymphocytes # (Auto) 0.4 Monocytes # (Auto) 0.5 Eosinophils # (Auto) 0.2 Basophils # (Auto) 0.0 CBC Comment DIFF FINAL Differential Comment Blood Urea Nitrogen 23 Creatinine 0.81 Random Glucose 103 Calcium Level 8.4 Sodium Level 141 Potassium Level 3.9 Chloride Level 107 Carbon Dioxide Level 25.6 Anion Gap 8 Estimat Glomerular Filtration Rate 94 Cardiovascular: Regular Lungs: Clear Abdomen: Other (lap sites c/d/i ) Extremities: No edema A/P Problem List: (1) Hypokalemia ICD Codes: E87.6 - Hypokalemia Status: Acute (2) Hyponatremia ICD Codes: E87.1 - Hypo-osmolality and hyponatremia Status: Acute (3) Parkinson disease ICD Codes: G20 - Parkinson's disease Status: Chronic (4) HTN (hypertension) ICD Codes: I10 - Essential (primary) hypertension Status: Acute (5) Partial small bowel obstruction ICD Codes: K56.69 - Other intestinal obstruction Status: Acute Assessment and Plan 67 year old male POD1 dx lap; LEFT left hernia repair; UHR -Advance to regular diet -OOB; PT eval -OT request -KVO fluids -Referral to [facility] due to Parkinson's, recent falls, deconditioning over the past several weeks Problem Qualifiers (1) HTN (hypertension): Qualified Codes: I10 - Essential (primary) hypertension Gavi Kathleen May 24, 2017 18:05
[2017-05-25] VITALS: BP 115/58; PULSE 90; RESP 18; TEMP 96.7; O2SAT 96
[2017-05-25 01:00] VITALS: BP 121/58; PULSE 94; RESP 18; TEMP 96.7; O2SAT 94
[2017-05-25 02:00] VITALS: BP 115/73; PULSE 82; RESP 19; TEMP 97.1; O2SAT 97
[2017-05-25 03:00] VITALS: BP 107/58; PULSE 70; RESP 18; TEMP 97.1; O2SAT 95
[2017-05-25 07:00] VITALS: BP 133/62; PULSE 82; RESP 18; TEMP 96.7; O2SAT 95
[2017-05-25] MEDS: AMANTADINE HCL 100 MG CAP PO SCH ×2 (08:14→11:54)
[2017-05-25] MEDS: PANTOPRAZOLE SOD 20 MG DELAYED RELEASE TAB PO SCH (08:14)
[2017-05-25] MEDS: CARBIDOPA/LEVODOPA 10 MG/100 MG TAB PO SCH ×2 (08:14→11:54)
[2017-05-25] MEDS: GLYCOPYRROLATE 1 MG TAB PO SCH (08:14)
[2017-05-25] MEDS: ESCITALOPRAM OXALATE 10 MG TAB PO SCH (08:14)
[2017-05-25] MEDS: ENALAPRIL MALEATE 10 MG TAB PO SCH (08:15)
[2017-05-25 08:53] LABS: BASOPHIL % 0.1 % (0.0-2.0); EOSINOPHIL # 0.4 TH/MM3 (0-0.4); EOSINOPHIL % 5.1 % (0.0-4.0); HEMATOCRIT 32.1 % (39.0-51.0); HEMO FLAGS DIFF FINAL; LYMPH % 8.9 % (9.0-44.0); LYMPHOCYTE # 0.7 TH/MM3 (1.0-4.8); MEAN CELL VOLUME 93.6 FL (80.0-100.0); MEAN CORPUSCULAR HEMOGLOBIN 31.4 PG (27.0-34.0); MEAN CORPUSCULAR HGB CONC 33.6 % (32.0-36.0); MONO % 7.7 % (0.0-8.0); NEUT % 78.2 % (16.0-70.0); PLATELET COUNT 222 TH/MM3 (150-450); RED BLOOD COUNT 3.43 MIL/MM3 (4.50-5.90); RED CELL DISTRIBUTION WIDTH 12.9 % (11.6-17.2); WHITE BLOOD COUNT 7.6 TH/MM3 (4.0-11.0)
[2017-05-25 09:07] LABS: BICARBONATE 26.4 MEQ/L (21.0-32.0); POTASSIUM 3.6 MEQ/L (3.5-5.1)
[2017-05-25 11:00] VITALS: BP 108/59; PULSE 74; RESP 18; TEMP 96.2; O2SAT 95
[2017-05-25] MEDS ORDERED: POLYETHYLENE GLYCOL 17 GM PKG PO SCH (11:00)
--- NOTE | 2017-05-25 11:03 | HHI.PR ---
Subjective Subjective Notes Sitting on the side of the bed with therapy at bedside--- reports small fall last night ---no injuries; no new pain Objective Vitals/I&O Vital Signs Date Time Temp Pulse Resp B/P (MAP) Pulse Ox O2 Delivery O2 Flow Rate FiO2 05/25/17 07:00 96.7 82 18 133/62 (85) 95 05/24/17 20:18 21 05/23/17 20:30 Nasal Cannula 2 Labs Laboratory Tests Test 05/25/17 07:45 White Blood Count 7.6 Red Blood Count 3.43 Hemoglobin 10.8 Hematocrit 32.1 Mean Corpuscular Volume 93.6 Mean Corpuscular Hemoglobin 31.4 Mean Corpuscular Hemoglobin Concent 33.6 Red Cell Distribution Width 12.9 Platelet Count 222 Mean Platelet Volume 7.6 Neutrophils (%) (Auto) 78.2 Lymphocytes (%) (Auto) 8.9 Monocytes (%) (Auto) 7.7 Eosinophils (%) (Auto) 5.1 Basophils (%) (Auto) 0.1 Neutrophils # (Auto) 6.0 Lymphocytes # (Auto) 0.7 Monocytes # (Auto) 0.6 Eosinophils # (Auto) 0.4 Basophils # (Auto) 0.0 CBC Comment DIFF FINAL Differential Comment Blood Urea Nitrogen 17 Creatinine 0.80 Random Glucose 95 Calcium Level 8.2 Sodium Level 141 Potassium Level 3.6 Chloride Level 106 Carbon Dioxide Level 26.4 Anion Gap 9 Estimat Glomerular Filtration Rate 96 Cardiovascular: Regular Lungs: Clear Abdomen: Other (lap sites c/d/i; non tender non distended ) Extremities: No edema A/P Problem List: (1) Hypokalemia ICD Codes: E87.6 - Hypokalemia Status: Acute (2) Hyponatremia ICD Codes: E87.1 - Hypo-osmolality and hyponatremia Status: Acute (3) Parkinson disease ICD Codes: G20 - Parkinson's disease Status: Chronic (4) HTN (hypertension) ICD Codes: I10 - Essential (primary) hypertension Status: Acute (5) Partial small bowel obstruction ICD Codes: K56.69 - Other intestinal obstruction Status: Acute Assessment and Plan 67 year old male POD2 dx lap; LEFT left hernia repair; UHR -Tolerating regular diet -OOB; PT eval/OT -GS clear for DC - to bring in Parkinson's medications that [facility] does not carry -Also okay to use home CPAP -Patient has been accepted at [facility] -Follow up with Dr. Shen in 10-14 days Problem Qualifiers (1) HTN (hypertension): Qualified Codes: I10 - Essential (primary) hypertension Gavi Kathleen May 25, 2017 11:03
[2017-05-25] MEDS ORDERED: HYDR-3580 PO (11:54)
--- NOTE | 2017-05-25 11:55 | HHI.DCPOC ---
Discharge Care Plan Diagnosis: (1) Partial small bowel obstruction (2) HTN (hypertension) (3) Parkinson disease (4) Hypokalemia (5) Hyponatremia Goals to Promote Your Health * To prevent worsening of your condition and complications * To maintain your health at the optimal level Directions to Meet Your Goals Take your medications as prescribed Follow your dietary instruction Follow activity as directed Keep your appointments as scheduled Take your immunizations and boosters as scheduled If your symptoms worsen call your PCP, if no PCP go to Urgent Care Center or Emergency Room Smoking is Dangerous to Your Health. Avoid second hand smoke Call the 24-hour hour crisis hotline for domestic abuse at Alex Gupta MD May 25, 2017 11:55
--- NOTE | 2017-05-25 11:57 | HHI.DS ---
cc: Yancy Han MD Discharge Summary Admission Date May 21, 2017 at 07:26 Discharge Date: May 25, 2017 Admitting Diagnosis small bowel obstruction (1) Hyponatremia ICD Code: E87.1 - Hypo-osmolality and hyponatremia Status: Acute (2) SBO (small bowel obstruction) ICD Code: K56.69 - Other intestinal obstruction Status: Acute (3) HTN (hypertension) ICD Code: I10 - Essential (primary) hypertension Status: Chronic (4) Parkinson disease ICD Code: G20 - Parkinson's disease Status: Chronic (5) Hypokalemia ICD Code: E87.6 - Hypokalemia Status: Acute Procedures 05/23/17 diagnostic laparoscopy. Laparoscopic left inguinal hernia repair with mesh. Primary umbilical hernia repair with Prolene. Brief History - From Admission The patient is a 67-year-old male with history of multiple abdominal surgeries and prior small bowel obstruction. He presented to the emergency department with complaint of nausea, vomiting, and abdominal pain. This started yesterday and worsened overnight. He has had constipation for the past 5 days. This has not improved with laxatives, enemas. The patient describes his abdominal pain as burning and severe. It is located around the umbilicus, lasts for a few minutes, and then resolves. Emesis is dark and appears to be fecal material. CBC/BMP: 05/25/17 0745 05/25/17 0745 Significant Findings Laboratory Tests Test 05/23/17 06:10 05/24/17 10:15 05/25/17 07:45 Red Blood Count 3.59 MIL/MM3 (4.50-5.90) 3.72 MIL/MM3 (4.50-5.90) 3.43 MIL/MM3 (4.50-5.90) Hemoglobin 11.6 GM/DL (13.0-17.0) 11.6 GM/DL (13.0-17.0) 10.8 GM/DL (13.0-17.0) Hematocrit 33.9 % (39.0-51.0) 35.2 % (39.0-51.0) 32.1 % (39.0-51.0) Neutrophils (%) (Auto) 76.8 % (16.0-70.0) 86.1 % (16.0-70.0) 78.2 % (16.0-70.0) Monocytes (%) (Auto) 10.0 % (0.0-8.0) Lymphocytes # (Auto) 0.7 TH/MM3 (1.0-4.8) 0.4 TH/MM3 (1.0-4.8) 0.7 TH/MM3 (1.0-4.8) Blood Urea Nitrogen 32 MG/DL (7-18) 23 MG/DL (7-18) Estimat Glomerular Filtration Rate 81 ML/MIN (>89) Lymphocytes (%) (Auto) 5.3 % (9.0-44.0) 8.9 % (9.0-44.0) Calcium Level 8.4 MG/DL (8.5-10.1) 8.2 MG/DL (8.5-10.1) Eosinophils (%) (Auto) 5.1 % (0.0-4.0) Imaging Last Impressions Abdomen X-Ray 05/22/17 0600 Signed Impressions: Service Date/Time: Monday, May 22, 2017 05:28 - CONCLUSION: Persistent but improving small bowel ileus characteristic of a partial small bowel obstruction Calvin Craig MD Abdomen/Pelvis CT 05/21/17 0523 Signed Impressions: Service Date/Time: Sunday, May 21, 2017 06:36 - CONCLUSION: 1. Findings of small bowel obstruction with transition zone in the right lower quadrant. Porter Burt MD PE at Discharge General: Elderly male in no acute distress. Somewhat tremulous. Heart: Regular rate and rhythm. No murmur. Lungs: Clear to auscultation bilaterally. No wheezes, rales, or rhonchi. Breathing is nonlabored. Abdomen: Soft, appropriate tenderness to palpation at surgical site, nondistended. Extremities: No lower extremity edema. SCDs. Psych: Alert and oriented. Pt update on day of discharge The patient reports that his Parkinson symptoms are slightly worse today. Otherwise he feels better today. Abdominal pain is improving. No nausea or vomiting. He did fall last night. Reports no injuries. Patient has been cleared for discharge by general surgery and has been accepted at [facility]. Hospital Course The patient was admitted for further management of small bowel obstruction. NG tube was placed in the ER. General surgery was consulted. The NG tube became dislodged. The patient's symptoms improved. General surgery performed primary umbilical hernia repair, laparoscopic assisted left inguinal hernia repair with mesh. The patient continued to improve postoperatively. He was felt to be stable for discharge and was cleared by general surgery. Arrangements were made for rehabilitation at [facility] for inpatient rehabilitation. Pt Condition on Discharge: Stable Discharge Disposition: Rehab Inpatient Discharge Time: > 30 minutes Discharge Instructions DIET: Follow Instructions for: As Tolerated, No Restrictions Activities you can perform: Regular-No Restrictions Other Activity Instructions: With assistance Follow up Referrals: PCP Follow-up - 1 Week Surgical - 10 Days with Bill Shen MD New Medications: Hydrocodone/Acetaminophen (Hydrocodone-Acetamin 7.5-325) 7.5 Mg-325 Mg Tablet 1 TAB PO Q4H PRN for PAIN SCALE 4 TO 10, #10 TAB 0 Refills Continued Medications: Amantadine (Amantadine) 100 Mg Tab 100 MG PO TID, #60 TAB 0 Refills Carbidopa-Levodopa (Sinemet) 10-100 Mg Tab 1 TAB PO TID for Parkinson Disease Mgmt, #90 TAB 0 Refills Enalapril (Enalapril) 10 Mg Tab 10 MG PO DAILY, #30 TAB 0 Refills Escitalopram (Escitalopram) 10 Mg Tab 10 MG PO DAILY, #30 TAB 0 Refills Furosemide (Furosemide) 40 Mg Tab 40 MG PO DAILY PRN for swelling of ankles, #30 TAB 0 Refills Glycopyrrolate (Glycopyrrolate) 1 Mg Tab 1 MG PO DAILY, #60 TAB 0 Refills Methylcobalamin Odt (B-12 Quick Dissolve) 5,000 Mcg Tab 1000 MCG SL DAILY for Nutritional Supplement, TAB 0 Refills Omeprazole (Omeprazole) 20 Mg Tab 20 MG PO DAILY, #30 TAB 0 Refills Pramipexole ER 24 HR (Mirapex ER 24 HR) 4.5 Mg Tab 4.5 MG PO DAILY for Parkinson Disease Mgmt, #30 TAB 0 Refills Discontinued Medications: Naproxen Sodium (Aleve) 220 Mg Capsule 1 CAP PO BID Alex Gupta MD May 25, 2017 11:57
== END 2017-05-25 14:18 | DRG 351 ==
LOC: NEPC 04:58 → NEDA 07:26 → N06B 09:25 → N06A 05-23 21:27
PROVIDERS: ADMIT Family Medicine; ATTEND Family Medicine
PROC: 0YU64JZ Supplement Left Inguinal Region with Synthetic Substitute, Percutaneous Endoscopic Approach (ICD-10-PCS; principal; 2017-05-23 17:50)
PROC: 0WQF0ZZ Repair Abdominal Wall, Open Approach (ICD-10-PCS; 2017-05-23 17:50)
DX: K40.30 Unilateral inguinal hernia, with obstruction, without gangrene, not specified as recurrent (principal); E87.1 Hypo-osmolality and hyponatremia; G20 Parkinson's disease; K42.9 Umbilical hernia without obstruction or gangrene; E87.6 Hypokalemia; I10 Essential (primary) hypertension; H91.90 Unspecified hearing loss, unspecified ear; K21.9 Gastro-esophageal reflux disease without esophagitis; M17.0 Bilateral primary osteoarthritis of knee; N28.9 Disorder of kidney and ureter, unspecified; R47.02 Dysphasia; Z85.828 Personal history of other malignant neoplasm of skin; Z96.653 Presence of artificial knee joint, bilateral
CPT/HCPCS: 74000; 74177; 80048; 80053; 81001; 83605; 83690; 83735; 85025; 93005; 96365; 96375; C1781; J0690; J1885; J2370; J2405; J2543; J2710; J3010; J3480; Q9967